=== PATIENT | male | born 1985 | race Two or more races ===

== ENCOUNTER 2021-10-11 08:54 | Inpatient (IN) | payer BC, SELFPAY ==
--- NOTE | ~2021-10-11 | XR_ITS ---
EXAMINATION: XR CHEST CLINICAL INFORMATION: Shortness of breath COMPARISON: None TECHNIQUE: Frontal view of the chest was obtained. FINDINGS: Prominent bilateral patchy areas of consolidation throughout both lungs. Cardiac mediastinal silhouette normal. Bone and soft tissues unremarkable. XR/XR chest 1V IMPRESSION: Prominent bilateral patchy areas of consolidation likely reflects prominent bilateral pneumonia
--- NOTE | ~2021-10-11 | US_ITS ---
EXAMINATION: US ABDOMEN LIMITED CLINICAL INFORMATION: Abnormal liver function test, COVID positive.. COMPARISON: None TECHNIQUE: Real-time imaging of the right upper quadrant abdominal viscera. FINDINGS: PANCREAS: Normal. LIVER: Normal. The liver is normal in size. The liver contour is normal. Parenchymal echogenicity is normal. No focal hepatic lesion. There is no intrahepatic biliary duct dilatation seen. GALLBLADDER: Normal. The gallbladder is physiologically distended without evidence of stones, sludge, polyps, wall thickening or pericholecystic fluid. COMMON BILE DUCT: Normal in caliber measuring 0.3 cm in diameter. RIGHT KIDNEY: The right kidney is abnormally increased in echogenicity without hydronephrosis. No renal calculi or focal parenchymal lesions. The kidney measures 11.3 cm in maximum dimension. FREE FLUID: None. US/US abdomen limited IMPRESSION: Normal liver size without biliary dilatation or gallstones The right kidney is echogenic which raises the possibility of medical renal disease or infection. No hydronephrosis.
[2021-10-11 09:04] VITALS: BP 113/72; PULSE 111; RESP 22; TEMP 37.1; O2SAT 90; BMI 25.8
--- NOTE | 2021-10-11 09:11 | PC.NURSE ---
2l nc applied. in [place]
--- NOTE | 2021-10-11 11:02 | ECG_ITS ---
Test Reason : sob Blood Pressure : / mmHG Vent. Rate : 096 BPM Atrial Rate : 096 BPM P-R Int : 128 ms QRS Dur : 078 ms QT Int : 332 ms P-R-T Axes : 061 034 000 degrees QTc Int : 419 ms Normal sinus rhythm Normal ECG No previous ECGs available Referred By: Estephania Manning Electronically Signed By:Lacho Waite
--- NOTE | 2021-10-11 11:04 | ED_ITS ---
HPI - URI/Sore Throat General Chief Complaint: Upper Respiratory Symptoms Stated Complaint: sob Time Seen by Provider: 10/11/21 10:56 Source: patient Mode of arrival: ambulatory Limitations: no limitations History of Present Illness HPI Narrative: 36 y/o male with no medical history who was diagnosed with COVID- 19 on 10/03 presents to the ER from home c/o worsening SOB, PELLETIER, body aches and headaches over the last week. He states he took a 2 day trip to [place] and in the airport when he got home on 10/03 he tested positive for COVID. He only had a mild headache at the time. Throughout the week he has gotten more symptoms and his breathing started to become very short with little exertion. He is fatigued and weak. He is unvaccinated. He denies any fevers at home. His appetite is poor because he lost his sense of taste. He has coughing fits and cannot catch his breath. He has central chest pain during these episodes and it takes him a while to recover. MD elicited complaint: cough and other (SOB, PELLETIER, body aches) Onset (ago): day(s) Consistency: constant Severity: moderate Able to tolerate fluids by mouth: Yes Exacerbating factors: exertion and speaking Relieving factors: rest Context: recent travel Associated symptoms: chills, myalgias, diaphoresis, headache, nasal congestion, cough, chest pain and shortness of breath Treatments prior to arrival: none Related Data Home Medications Medication Instructions Recorded Confirmed No Known Home Meds 10/11/21 10/11/21 Allergies Allergy/AdvReac Type Severity Reaction Status Date / Time No Known Allergies Allergy Verified 10/11/21 09:04 Review of Systems Review of Systems: Constitutional: No Fever, + Chills ENT/Mouth: No sore throat, No Rhinorrhea, No Swallowing Difficulty Eyes: No Eye Pain, No Swelling, No Redness Cardiovascular: + Chest Pain, + SOB, No Orthopnea, No Edema Respiratory: + Cough, No Sputum, No Wheezing, + dyspnea Gastrointestinal: No Nausea, No Vomiting, No Diarrhea, No abdominal Pain, No Hem atochezia, No Melena Genitourinary: No Dysuria, No Urinary Frequency, No Hematuria Musculoskeletal: + joint pain, + Myalgias Skin: No Skin Lesions, No rash Neuro: + Weakness, No Numbness, No Dizziness, + Headache Psych: No Anxiety/Panic, No Depression Heme/Lymph: No Bruising, No Lymphadenopathy Endocrine: No Polyuria, No Polydipsia PMFSH Social History Social History Alcohol intake: never Smoked in Last 30 Days: No Use of substances other than those prescribed or required for medical reasons: No Advance Directives: No Advance Directives Information Provided: No Physical Exam 2 Vital Signs: Vital Signs: Last Vital Signs Temp 98.7 F 10/11/21 09:04 Pulse 111 H 10/11/21 09:04 Resp 22 H 10/11/21 09:04 BP 113/72 10/11/21 09:04 Pulse Ox 88 L 10/11/21 11:24 BMI result Body Mass Index 25.8 Appearance: Alert. Oriented X3. Mild respiratory distress, diaphoretic, appears ill Eyes: Pupils equal, round and reactive to light. ENT: Pharynx normal. Moist mucus membranes, normal TM's bilaterally. Neck: Normal inspection. Neck supple. CVS: Tachycardic, regular rhythm. Pulses normal. Respiratory: Mild respiratory distress with increased RR, belly breathing after exertion. Breath sounds coarse and diminished at the bases, poor inspiratory effort. dry cough Abdomen: Soft and nontender. +BS x4 Skin: Skin warm and dry. Normal skin color. Normal skin turgor. No rashes. Extremities: No lower extremity edema. No calf tenderness. Neuro: Oriented X 3. No motor deficit. No sensory deficit. Ambulates with steady gait Course Course Course Narrative: 36 y/o otherwise healthy male who is unvaccinated for COVID presents with worsening COVID-19 symptoms x1 week. He is diaphoretic, tachycardic, with accessory muscle use after minimal exertion. SpO2 dropped to 88% and he was working to breathe. Placed on supplemental oxygen, 4L NC until he can recover. Anticipate admission. Will get COVID workup, CXR, EKG. Reevaluation(s) Reevaluation #1: Chest x-ray showing prominent bilateral patchy areas of consolidation most consistent with bilateral COVID pneumonia. IV Decadron ordered. He has some mild LFT elevation with no right upper quadrant pain, this most likely due to COVID-19. His CRP is 8.34 with a negative D-dimer. Respiratory status stable on 4 L nasal cannula. Will plan for admission. [facility] - URI/Sore Throat Medical Records Attestation: I reviewed the patient's medical records. Lab Data Attestation: I reviewed the patient's lab results. Result diagrams: 10/11/21 11:22 10/11/21 11:22 Labs: Lab Results 10/11/21 10/11/21 10/11/21 Range/Units 11:22 11:22 11:22 WBC 8.4 (4.8-10.8) X10*3/uL RBC 6.01 H (4.60-5.80) X10*6/uL Hgb 16.4 (14.0-18.0) g/dl Hct 48.6 (42.0-52.0) % MCV 80.9 (80.0-98.0) fL MCH 27.3 (27.0-33.0) pg MCHC 33.7 (31.0-36.0) g/dl RDW 16.6 H (11.0-16.0) % Plt Count 409 H (160-400) X10*3/uL MPV 10.0 (9.4-12.4) fL Immature Gran % (Auto) 1.2 H (0.0-0.4) % Neut % (Auto) 79.1 H (45-73) % Lymph % (Auto) 9.3 L (20-40) % [place] % (Auto) 10.3 (2-11) % Eos % (Auto) 0.0 (0-4) % Baso % (Auto) 0.1 (0-2) % Lymph # (Auto) 0.8 L (1.2-4.9) X10*3/uL [place] # (Auto) 0.9 (0.1-1.2) X10*3/uL Eos # (Auto) 0.0 (0.0-0.4) X10*3/uL Baso # (Auto) 0.0 (0.0-0.2) X10*3/uL Abs Immat Gran (auto) 0.10 H (0.00-0.03) X10*3/uL Absolute Neuts (auto) 6.7 (2.0-8.3) x10*3/uL Absolute Nucleated RBC 0.000 (0.0-0.012) X10*3/uL Nucleated RBC % (auto) 0.0 (0.0-0.2) /100WBC PT (9.9-13.0) SEC INR (0.9-1.1) APTT (24.1-38.0) SEC D-Dimer High Sensitivty NG/ML Sodium 135 (135-145) mmol/L Potassium 4.6 (3.3-5.1) mmol/L Chloride 97 (96-108) mmol/L Carbon Dioxide 27 (22-29) mmol/L Anion Gap 16 (12-20) BUN 9 (9-16) mg/dL Creatinine 1.00 (0.5-1.4) mg/dL Estim Creat Clear Calc 93.6 Estimated GFR > 60 Random Glucose 92 (60-115) mg/dL Lactic Acid 1.5 (0.5-2.0) mmol/L Calcium 8.7 (8.4-10.2) mg/dL Magnesium 2.3 (1.6-2.6) mg/dL Total Bilirubin 0.6 (0.0-1.0) mg/dL Direct Bilirubin 0.4 (0.0-0.5) mg/dL AST 135 H (5-37) U/L ALT 190 H (0-40) U/L Alkaline Phosphatase 59 (39-117) U/L Lactate Dehydrogenase 548 H (118-273) U/L C-Reactive Protein 8.34 H (< or = 0.50) mg/dL Total Protein 7.5 (6.5-8.0) g/dL Albumin 4.1 (3.5-5.0) g/dL Procalcitonin ng/mL COVID-19 ([facility]ARPAL) (Negative) COVID-19 Clin Com 10/11/21 10/11/21 10/11/21 Range/Units 11:22 11:22 11:22 WBC (4.8-10.8) X10*3/uL RBC (4.60-5.80) X10*6/uL Hgb (14.0-18.0) g/dl Hct (42.0-52.0) % MCV (80.0-98.0) fL MCH (27.0-33.0) pg MCHC (31.0-36.0) g/dl RDW (11.0-16.0) % Plt Count (160-400) X10*3/uL MPV (9.4-12.4) fL Immature Gran % (Auto) (0.0-0.4) % Neut % (Auto) (45-73) % Lymph % (Auto) (20-40) % [place] % (Auto) (2-11) % Eos % (Auto) (0-4) % Baso % (Auto) (0-2) % Lymph # (Auto) (1.2-4.9) X10*3/uL [place] # (Auto) (0.1-1.2) X10*3/uL Eos # (Auto) (0.0-0.4) X10*3/uL Baso # (Auto) (0.0-0.2) X10*3/uL Abs Immat Gran (auto) (0.00-0.03) X10*3/uL Absolute Neuts (auto) (2.0-8.3) x10*3/uL Absolute Nucleated RBC (0.0-0.012) X10*3/uL Nucleated RBC % (auto) (0.0-0.2) /100WBC PT 11.9 (9.9-13.0) SEC INR 1.0 (0.9-1.1) APTT 32.8 (24.1-38.0) SEC D-Dimer High Sensitivty < 150 NG/ML Sodium (135-145) mmol/L Potassium (3.3-5.1) mmol/L Chloride (96-108) mmol/L Carbon Dioxide (22-29) mmol/L Anion Gap (12-20) BUN (9-16) mg/dL Creatinine (0.5-1.4) mg/dL Estim Creat Clear Calc Estimated GFR Random Glucose (60-115) mg/dL Lactic Acid (0.5-2.0) mmol/L Calcium (8.4-10.2) mg/dL Magnesium (1.6-2.6) mg/dL Total Bilirubin (0.0-1.0) mg/dL Direct Bilirubin (0.0-0.5) mg/dL AST (5-37) U/L ALT (0-40) U/L Alkaline Phosphatase (39-117) U/L Lactate Dehydrogenase (118-273) U/L C-Reactive Protein (< or = 0.50) mg/dL Total Protein (6.5-8.0) g/dL Albumin (3.5-5.0) g/dL Procalcitonin 0.27 ng/mL COVID-19 ([facility]ARPAL) Positive A (Negative) COVID-19 Clin Com See Note ECG Data Attestation: I personally reviewed and interpreted this ECG as follows: ECG interpretation date: 10/11/21 ECG interpretation time: 11:52 Interpretation: Normal sinus rhythm, heart rate 96 beats per minute, normal LA interval, normal QTC, no ST segment elevations or depressions. Critical Care Time Critical Care Time Critical Care Time: Yes Total Critical Care Time: 35 Attestation: I have personally provided critical care time exclusive of time spent on separately billable procedures. Time includes review of lab data, radiology results, discussion with hospitalist, frequest bedside reassessments and monitoring for potential decompensation. Intervention performed as documented. Discharge Plan Discharge Clinical Impression: COVID-19, Acute respiratory failure with hypoxia Patient Disposition: Admitted As Inpatient
[2021-10-11 11:07] VITALS: O2SAT 91
[2021-10-11 11:24] VITALS: O2SAT 88
[2021-10-11] MEDS: 0.9 % Sodium Chloride 1,000 ML 999 ML IVCONT (11:29)
[2021-10-11] MEDS: dexAMETHasone sod phosphate 10 MG/ML VIAL IVPUSH (11:29)
[2021-10-11] MEDS: Acetaminophen 325 MG TABLET 975 MG PO (11:29)
[2021-10-11 11:30] LABS: MANUAL DIFF FLAG NO
[2021-10-11 11:31] LABS: Basophils Percent Auto 0.1 % (0-2); Hematocrit 48.6 % (42.0-52.0); Hemoglobin 16.4 g/dl (14.0-18.0); Imm Gran Pct Auto 1.2 % (0.0-0.4); Lymphocytes Absolute Auto 0.8 X10*3/uL (1.2-4.9); Lymphocytes Percent Auto 9.3 % (20-40); Mean Corpuscular HGB Conc 33.7 g/dl (31.0-36.0); Mean Corpuscular Hemoglobin 27.3 pg (27.0-33.0); Mean Corpuscular Volume 80.9 fL (80.0-98.0); Monocytes Absolute Auto 0.9 X10*3/uL (0.1-1.2); Monocytes Percent Auto 10.3 % (2-11); Neutrophils Absolute Auto 6.7 x10*3/uL (2.0-8.3); Neutrophils Percent Auto 79.1 % (45-73); Platelet Count 409 X10*3/uL (160-400); Red Blood Count 6.01 X10*6/uL (4.60-5.80); Red Cell Distribution Width 16.6 % (11.0-16.0); White Blood Count 8.4 X10*3/uL (4.8-10.8)
[2021-10-11 11:37] LABS: Prothrombin Time 11.9 SEC (9.9-13.0)
[2021-10-11 11:39] LABS: Partial Thromboplastin Time 32.8 SEC (24.1-38.0)
[2021-10-11 11:40] LABS: COVID-19 Test Positive (Negative); D Dimer High Sensitivity < 150 NG/ML
[2021-10-11 11:42] LABS: Lactic Acid 1.5 mmol/L (0.5-2.0)
[2021-10-11 11:50] LABS: Alanine Aminotransferase 190 U/L (0-40); Albumin Level 4.1 g/dL (3.5-5.0); Alkaline Phosphatase 59 U/L (39-117); Anion Gap 16 (12-20); Aspartate Amino Transferase 135 U/L (5-37); Bilirubin Direct 0.4 mg/dL (0.0-0.5); Bilirubin Total 0.6 mg/dL (0.0-1.0); Blood Urea Nitrogen 9 mg/dL (9-16); C Reactive Protein 8.34 mg/dL (< or = 0.50); Calcium 8.7 mg/dL (8.4-10.2); Carbon Dioxide 27 mmol/L (22-29); Chloride 97 mmol/L (96-108); Creatinine Clr Calc Pharmacy 93.6; Estimated Glomerular Filt Rate > 60; Glucose Random 92 mg/dL (60-115); Magnesium 2.3 mg/dL (1.6-2.6); Potassium 4.6 mmol/L (3.3-5.1); Sodium 135 mmol/L (135-145); Total Protein 7.5 g/dL (6.5-8.0)
[2021-10-11 11:59] LABS: Lactate Dehydrogenase 548 U/L (118-273)
--- NOTE | 2021-10-11 12:00 | PHA.MEDREC ---
Pharmacy Consult ? Medication Reconciliation Pharmacy has completed the medication reconciliation. Spoke with patient in ED.
[2021-10-11 12:05] LABS: Procalcitonin 0.27 ng/mL
[2021-10-11 12:52] LABS: Ferritin 666 ng/mL (20-250)
--- NOTE | 2021-10-11 13:33 | P.HPHOSP_ITS ---
History of Present Illness Date of Service: 10/11/21 Attending physician on admission: Loco Batista Chief Complaint: sob 36-year-old male with no significant past medical history had recent trip to [place] to visit his brother (who is vaccinated for COVID and has no symptoms currently). He says that he came back on and since then he is having headaches myalgia and loss of taste and smell, and from last 2-3 days he is also having progressive shortness of breath and fever. He says that a he still has on and off fever has some dry cough. he denies any sick contacts he says his brother lives alone and he also lives alone . unvaccinated. Denies any new complaint of chest pain or abdominal pain or fever or chills or nausea or vomiting genrally weak Denies any weakness or numbness. Review of Systems Review of Systems: As above. Yes all other systems are reviewed and are negative PMFSH Pertinent family history: Says his father has hypertension Social History Alcohol intake: never Smoked in Last 30 Days: No Use of substances other than those prescribed or required for medical reasons: No Advance Directives: No Advance Directives Information Provided: No service: No Current occupational status: employed Meds Allergies Allergy/AdvReac Type Severity Reaction Status Date / Time No Known Allergies Allergy Verified 10/11/21 09:04 Active Medications: Current Medications Dexamethasone Sodium Phosphate (Dexamethasone Sod Phosphate 4 Mg/Ml Vial) 6 mg IVPUSH DAILY [facility] Enoxaparin Sodium (Enoxaparin Sodium 40 Mg/0.4 Ml Syringe) 40 mg SUBCUT DAILY [facility] Pharmacy Consult (Consult Rx Perform Med Rec) 1 each MISCELLANE ONCE PRN PRN Reason: Consult order Pharmacy Consult (Consult Rx Perform Med Rec) 1 each MISCELLANE ONCE PRN PRN Reason: Consult order Sodium Chloride (0.9 % Sodium Chloride Flush 3 Ml Syringe) 3 ml IVFLUSH QSHIFT [facility] Home Medications Medication Instructions Recorded Confirmed Last Taken Type No Known Home Meds 10/11/21 10/11/21 Unknown History Physical Exam Vital Signs and Narrative: Vital Signs: Last Vital Signs Temp 98.7 F 10/11/21 09:04 Pulse 111 H 10/11/21 09:04 Resp 22 H 10/11/21 09:04 BP 113/72 10/11/21 09:04 Pulse Ox 88 L 10/11/21 11:24 BMI result Body Mass Index 25.8 Physical exam: Appearance: Alert.? Oriented X3.? not in distress.? Eyes: Pupils equal, round and reactive to light.? Sclera nonicteric.? ENT: Pharynx normal.? Moist mucous membranes. cvs: rrr, [id number] , no murmur res:fair air entry , slightly diminshed at bases , has few rhonchii abd: no rebound or guarding ,nt, bs present. ext pulses present , no cyanosis ,Gait well balanced well coordinated. neuro: axo3 , nonfocal. Results Labs CBC and Chem 7: 10/12/21 07:05 10/12/21 07:05 Labs: Laboratory Results - last 24 hr 10/11/21 10/11/21 10/11/21 11:22 11:22 11:22 MCV 80.9 MCH 27.3 MCHC 33.7 RDW 16.6 H Plt Count 409 H MPV 10.0 Immature Gran % (Auto) 1.2 H Neut % (Auto) 79.1 H Lymph % (Auto) 9.3 L [place] % (Auto) 10.3 Eos % (Auto) 0.0 Baso % (Auto) 0.1 Lymph # (Auto) 0.8 L [place] # (Auto) 0.9 Eos # (Auto) 0.0 Baso # (Auto) 0.0 Abs Immat Gran (auto) 0.10 H Absolute Neuts (auto) 6.7 Absolute Nucleated RBC 0.000 Nucleated RBC % (auto) 0.0 PT INR APTT D-Dimer High Sensitivty Anion Gap 16 Estim Creat Clear Calc 93.6 Estimated GFR > 60 Random Glucose 92 Lactic Acid 1.5 Calcium 8.7 Magnesium 2.3 Ferritin 666 H Total Bilirubin 0.6 Direct Bilirubin 0.4 AST 135 H ALT 190 H Alkaline Phosphatase 59 Lactate Dehydrogenase 548 H Total Creatine Kinase 314 H C-Reactive Protein 8.34 H Total Protein 7.5 Albumin 4.1 Procalcitonin COVID-19 ([facility]) COVID-19 Clin Com 10/11/21 10/11/21 10/11/21 11:22 11:22 11:22 MCV MCH MCHC RDW Plt Count MPV Immature Gran % (Auto) Neut % (Auto) Lymph % (Auto) [place] % (Auto) Eos % (Auto) Baso % (Auto) Lymph # (Auto) [place] # (Auto) Eos # (Auto) Baso # (Auto) Abs Immat Gran (auto) Absolute Neuts (auto) Absolute Nucleated RBC Nucleated RBC % (auto) PT 11.9 INR 1.0 APTT 32.8 D-Dimer High Sensitivty < 150 Anion Gap Estim Creat Clear Calc Estimated GFR Random Glucose Lactic Acid Calcium Magnesium Ferritin Total Bilirubin Direct Bilirubin AST ALT Alkaline Phosphatase Lactate Dehydrogenase Total Creatine Kinase C-Reactive Protein Total Protein Albumin Procalcitonin 0.27 COVID-19 ([facility]ARPAL) Positive A COVID-19 Clin Com See Note Imaging Radiologist's Impressions: Impressions Chest X-Ray 10/11/21 11:11 IMPRESSION: Prominent bilateral patchy areas of consolidation likely reflects prominent bilateral pneumonia Assessment and Plan (1) COVID-19: Status: Acute (2) Acute respiratory failure with hypoxia: Status: Acute 1. Acute hypoxemic respiratory failure secondary to COVID infection. viral sepsis, elevated LDH, lymphopenia, elevated C-reactive protein, procalc itonin low, Continue dexamethasone and oxygen support patient has symptoms starting on 24 as per patient. LFTs are elevated so currently may not able be on remdesivir. will add infectious disease evaluation 2. elevated liver function test: probably related to COVID will check hepatitis profile and abdominal ultrasound monitor LFTs. 3. DVT prophylaxis with subQ Lovenox above management discussed with the patient in detail length he understand and in agreement with the plan, time spent 70 minute patient full code. Quality Stroke Does the patient have a stroke diagnosis?: No VTE Prior VTE?: No VTE Risk Level:: Medical - moderate - high VTE Device Contraindication: N/A - Device Ordered VTE Drug Contraindication: N/A - Med Ordered
--- NOTE | 2021-10-11 14:27 | MHC.CM.PN ---
PATIENT LIVES ALONE AND IS FULLY INDEPENDENT HE IS NOT VACCINATED AGAINST COVID-19 NO DME OR VNA SERVICES HE ASSIGNS HIS MOTHER HCP DOCUMENT COMPLETED AND PLACED IN CHART, WELL UPLOADED INTO [employer].
[2021-10-11] MEDS: 0.9 % Sodium Chloride Flush 3 ML SYRINGE IVFLUSH (16:12)
[2021-10-11] MEDS: Enoxaparin Sodium 40 MG/0.4 ML SYRINGE SUBCUT (16:12)
[2021-10-11 17:30] VITALS: BP 116/68; PULSE 81; RESP 18; TEMP 36.6; O2SAT 94
[2021-10-12] VITALS (8 sets, daily range): BP systolic 90–125; BP diastolic 63–88; PULSE 69–90; RESP 15–34; TEMP 36.6–37.2; O2SAT 91–97
[2021-10-12] MEDS: 0.9 % Sodium Chloride Flush 3 ML SYRINGE IVFLUSH (00:20)
--- NOTE | 2021-10-12 02:02 | PC.NURSE ---
pt is sleeping.
[2021-10-12 07:18] LABS: Hematocrit 46.9 % (42.0-52.0); Hemoglobin 15.7 g/dl (14.0-18.0); Mean Corpuscular HGB Conc 33.5 g/dl (31.0-36.0); Mean Corpuscular Hemoglobin 26.7 pg (27.0-33.0); Mean Corpuscular Volume 79.8 fL (80.0-98.0); Mean Platelet Volume 9.7 fL (9.4-12.4); Platelet Count 412 X10*3/uL (160-400); Red Blood Count 5.88 X10*6/uL (4.60-5.80); Red Cell Distribution Width 15.6 % (11.0-16.0); White Blood Count 6.8 X10*3/uL (4.8-10.8)
[2021-10-12] MEDS: dexAMETHasone sod phosphate 4 MG/ML VIAL 6 MG IVPUSH (07:47)
--- NOTE | 2021-10-12 07:54 | PC.NURSE ---
Pt received; Pt AOX4 and c/o no pain at this time. NSR to sinus tachy noted with congestion and rales and prod cough. Pt remains on huddson n/c. Pt abd soft and non-tender. Pt now sitting up and tolerating breakfast.
[2021-10-12 08:05] LABS: Alanine Aminotransferase 145 U/L (0-40); Albumin Level 3.5 g/dL (3.5-5.0); Alkaline Phosphatase 51 U/L (39-117); Anion Gap 13 (12-20); Aspartate Amino Transferase 87 U/L (5-37); Bilirubin Direct 0.3 mg/dL (0.0-0.5); Bilirubin Total 0.6 mg/dL (0.0-1.0); Blood Urea Nitrogen 9 mg/dL (9-16); Calcium 8.2 mg/dL (8.4-10.2); Carbon Dioxide 26 mmol/L (22-29); Chloride 101 mmol/L (96-108); Creatinine Clr Calc Pharmacy 115.6; Estimated Glomerular Filt Rate > 60; Glucose Random 126 mg/dL (60-115); Potassium 4.7 mmol/L (3.3-5.1); Sodium 135 mmol/L (135-145); Total Protein 6.5 g/dL (6.5-8.0)
--- NOTE | 2021-10-12 11:29 | HO.PM.IMPN ---
Subjective Subjective Date of Service: 10/12/21 Interval History: Acute hypoxemic respiratory failure secondary to COVID Review of Systems Patient oxygen demand seems to be increasing overnight. Still feel tired and speaking in full sentences does not seem to be using accessory muscles. Denies any chest pain Has cough and phlegm Physical Exam Vital Signs: Vital Signs: Last Vital Signs Temp 97.9 F 10/12/21 06:28 Pulse 77 10/12/21 11:20 Resp 28 H 10/12/21 11:20 BP 112/88 10/12/21 11:20 Pulse Ox 94 10/12/21 11:20 BMI result Body Mass Index 25.8 Physical exam: ?Appearance: Alert.? Oriented X3.? not in distress.? Eyes: Pupils equal, round and reactive to light.? Sclera nonicteric.? ENT: Pharynx normal.? Moist mucous membranes. cvs: rrr, [id number] , no murmur res:fair? air entry , slightly diminshed at bases , has few rhonchii abd: no rebound or guarding ,nt, bs present. ext pulses present , no cyanosis . neuro: axo3 , nonfocal. Objective Data Active Medications Dexamethasone Sodium Phosphate (Dexamethasone Sod Phosphate 4 Mg/Ml Vial) 6 mg IVPUSH DAILY [facility] Last Admin: 10/12/21 07:47 Dose: 6 mg Documented by: SHELIA Enoxaparin Sodium (Enoxaparin Sodium 40 Mg/0.4 Ml Syringe) 40 mg SUBCUT Q24H [facility] Last Admin: 10/11/21 16:12 Dose: 40 mg Documented by: DENIA Pharmacy Consult (Consult Rx Perform Med Rec) 1 each MISCELLANE ONCE PRN PRN Reason: Consult order Pharmacy Consult (Consult Rx Perform Med Rec) 1 each MISCELLANE ONCE PRN PRN Reason: Consult order Sodium Chloride (0.9 % Sodium Chloride Flush 3 Ml Syringe) 3 ml IVFLUSH QSHIFT [facility] Last Admin: 10/12/21 07:15 Dose: Not Given Documented by: SHELIA Non-Admin Reason: Med Not Available Labs CBC & Chem 7: 10/12/21 07:05 10/12/21 07:05 Labs: Laboratory Results - last 24 hr 10/11/21 10/11/21 10/11/21 11:22 11:22 11:22 MCV 80.9 MCH 27.3 MCHC 33.7 RDW 16.6 H Plt Count 409 H MPV 10.0 Immature Gran % (Auto) 1.2 H Neut % (Auto) 79.1 H Lymph % (Auto) 9.3 L [place] % (Auto) 10.3 Eos % (Auto) 0.0 Baso % (Auto) 0.1 Lymph # (Auto) 0.8 L [place] # (Auto) 0.9 Eos # (Auto) 0.0 Baso # (Auto) 0.0 Abs Immat Gran (auto) 0.10 H Absolute Neuts (auto) 6.7 Absolute Nucleated RBC 0.000 Nucleated RBC % (auto) 0.0 PT INR APTT D-Dimer High Sensitivty Anion Gap 16 Estim Creat Clear Calc 93.6 Estimated GFR > 60 Random Glucose 92 Lactic Acid 1.5 Calcium 8.7 Magnesium 2.3 Ferritin 666 H Total Bilirubin 0.6 Direct Bilirubin 0.4 AST 135 H ALT 190 H Alkaline Phosphatase 59 Lactate Dehydrogenase 548 H Total Creatine Kinase 314 H C-Reactive Protein 8.34 H Total Protein 7.5 Albumin 4.1 Procalcitonin COVID-19 ([facility]) COVID-19 Clin Com 10/11/21 10/11/21 10/11/21 11:22 11:22 11:22 MCV MCH MCHC RDW Plt Count MPV Immature Gran % (Auto) Neut % (Auto) Lymph % (Auto) [place] % (Auto) Eos % (Auto) Baso % (Auto) Lymph # (Auto) [place] # (Auto) Eos # (Auto) Baso # (Auto) Abs Immat Gran (auto) Absolute Neuts (auto) Absolute Nucleated RBC Nucleated RBC % (auto) PT 11.9 INR 1.0 APTT 32.8 D-Dimer High Sensitivty < 150 Anion Gap Estim Creat Clear Calc Estimated GFR Random Glucose Lactic Acid Calcium Magnesium Ferritin Total Bilirubin Direct Bilirubin AST ALT Alkaline Phosphatase Lactate Dehydrogenase Total Creatine Kinase C-Reactive Protein Total Protein Albumin Procalcitonin 0.27 COVID-19 ([facility]) Positive A COVID-19 Clin Com See Note 10/12/21 10/12/21 07:05 07:05 MCV 79.8 L MCH 26.7 L MCHC 33.5 RDW 15.6 Plt Count 412 H MPV 9.7 Immature Gran % (Auto) Neut % (Auto) Lymph % (Auto) [place] % (Auto) Eos % (Auto) Baso % (Auto) Lymph # (Auto) [place] # (Auto) Eos # (Auto) Baso # (Auto) Abs Immat Gran (auto) Absolute Neuts (auto) Absolute Nucleated RBC 0.000 Nucleated RBC % (auto) 0.0 PT INR APTT D-Dimer High Sensitivty Anion Gap 13 Estim Creat Clear Calc 115.6 Estimated GFR > 60 Random Glucose 126 H D Lactic Acid Calcium 8.2 L Magnesium Ferritin Total Bilirubin 0.6 Direct Bilirubin 0.3 AST 87 H ALT 145 H Alkaline Phosphatase 51 Lactate Dehydrogenase Total Creatine Kinase C-Reactive Protein Total Protein 6.5 Albumin 3.5 Procalcitonin COVID-19 ([facility]) COVID-19 Clin Com Assessment and Plan (1) COVID-19: Status: Acute (2) Acute respiratory failure with hypoxia: Status: Acute Assessment and Plan: ?1.? Acute hypoxemic respiratory failure secondary to COVID infection. ?viral sepsis, elevated LDH, lymphopenia, elevated C-reactive protein, procalcitonin low, ? Continue dexamethasone and oxygen support now on 10liter ?patient has symptoms starting on 24th as per patient. ? LFTs are elevated so currently may not able be on remdesivir. ? infectious disease evaluation-lft's slowly improving 2. elevated liver function test:? probably related to COVID ?will check hepatitis profile -pending, abdominal ultrasound-seems fine ?monitor LFTs. 3.? DVT prophylaxis with subQ Lovenox Quality Stroke Does the patient have a stroke diagnosis?: No VTE Prior VTE?: No VTE Risk Level:: Medical - moderate - high VTE Device Contraindication: N/A - Device Ordered VTE Drug Contraindication: N/A - Med Ordered
[2021-10-12] MEDS: Enoxaparin Sodium 40 MG/0.4 ML SYRINGE SUBCUT (16:55)
[2021-10-12] MEDS: Melatonin 3 MG TABLET 6 MG PO (22:10)
[2021-10-13] VITALS (9 sets, daily range): BP systolic 100–131; BP diastolic 56–75; PULSE 73–90; RESP 17–34; TEMP 36.6–36.9; O2SAT 88–96
[2021-10-13] MEDS: 0.9 % Sodium Chloride Flush 3 ML SYRINGE IVFLUSH (01:18)
[2021-10-13 03:48] LABS: HBS Num1 12.87 mIU/mL (0-7.99); HBc Num1 0.06 S/CO (0.00-0.79); HBsAGNum1 0.19 S/CO (0.00-0.99); Hepatitis B Core Antibody Nonreactive (Nonreactive); Hepatitis B Surface Antigen Negative (Negative); ~Hepatitis B Surface Antibody REACTIVE (Nonreactive)
[2021-10-13 03:58] LABS: ~HepC Num1 0.11 S/CO (0.00-0.79); ~Hepatitis C Antibody Nonreactive (Nonreactive)
[2021-10-13] MEDS: Lidocaine 4 % Patch ADH..PATCH 1 PATCH TRANSDERMA (05:19)
[2021-10-13 07:34] LABS: Hematocrit 46.9 % (42.0-52.0); Hemoglobin 15.9 g/dl (14.0-18.0); Mean Corpuscular HGB Conc 33.9 g/dl (31.0-36.0); Mean Corpuscular Hemoglobin 26.6 pg (27.0-33.0); Mean Corpuscular Volume 78.6 fL (80.0-98.0); Mean Platelet Volume 9.9 fL (9.4-12.4); Platelet Count 491 X10*3/uL (160-400); Red Blood Count 5.97 X10*6/uL (4.60-5.80); Red Cell Distribution Width 16.1 % (11.0-16.0); White Blood Count 14.4 X10*3/uL (4.8-10.8)
[2021-10-13 07:51] LABS: Alanine Aminotransferase 139 U/L (0-40); Albumin Level 3.5 g/dL (3.5-5.0); Alkaline Phosphatase 51 U/L (39-117); Anion Gap 15 (12-20); Aspartate Amino Transferase 73 U/L (5-37); Bilirubin Direct 0.4 mg/dL (0.0-0.5); Bilirubin Total 0.6 mg/dL (0.0-1.0); Blood Urea Nitrogen 11 mg/dL (9-16); Calcium 8.4 mg/dL (8.4-10.2); Carbon Dioxide 25 mmol/L (22-29); Chloride 101 mmol/L (96-108); Creatinine Clr Calc Pharmacy 110.1; Estimated Glomerular Filt Rate > 60; Glucose Random 126 mg/dL (60-115); Potassium 4.8 mmol/L (3.3-5.1); Sodium 136 mmol/L (135-145); Total Protein 6.5 g/dL (6.5-8.0)
[2021-10-13] MEDS: dexAMETHasone sod phosphate 4 MG/ML VIAL 6 MG IVPUSH (09:16)
--- NOTE | 2021-10-13 09:25 | P.CDIC_ITS ---
CDI Concurrent Query Documentation Clarification: PHYSICIAN'S DOCUMENTATION REQUEST Date of Query: 10/13/2125 Patient Name: Ferny Mathew Admit Date: 10/11/21 Dear Doctor, A review of the medical record indicates additional documentation may be needed. Please review below and update the documentation accordingly. Risk Factors/Clinical Indicators/Treatments CXR: 10/11 - Prominent bilateral patchy area of consolidation likely reflects bilateral pneumonia. PN: 10/12 - Viral Sepsis, Covid-19, acute respiratory failure. Dexamethasone, oxygen, decradon * Viral Sepsis due to Covid-19 Pneumonia * Viral Sepsis due to Covid-19 * Other type * Unable to determine Use of terms such as suspected, likely, concern for, or probable (associated with a specific diagnosis that is being evaluated, monitored, or treated as if it exists) are acceptable and can be coded in the inpatient setting, when documented at the time of discharge. Thank you, Vanesa Randall [facility], CDIS Extension: [phone] Please use your independent medical judgment in providing your response. THIS QUERY IS PART OF THE PERMANENT MEDICAL RECORD Provider Response: Other Other Diagnosis: Viral sepsis due to COVID pneumonia
[2021-10-13] MEDS: guaiFEN/Codeine SF 200/20/10ML 10 ML LIQUID 5 ML PO ×2 (12:04→18:25)
--- NOTE | 2021-10-13 13:21 | P.PNIM_ITS ---
Subjective Subjective Date of Service: 10/13/21 Interval History: Acute hypoxemic respiratory failure secondary to COVID pneumonia, worse sepsis due to COVID pneumonia. Review of Systems Shortness of breath cyst is slowly improving has some cough and pain with coughing. Denies any fever chills or abdominal pain or nausea or vomiting Physical Exam Vital Signs: Vital Signs: Last Vital Signs Temp 98.1 F 10/13/21 09:18 Pulse 90 10/13/21 12:05 Resp 22 H 10/13/21 12:05 BP 110/70 10/13/21 12:05 Pulse Ox 92 10/13/21 12:07 BMI result Body Mass Index 25.8 ?Appearance: Alert.? Oriented X3.? not in distress.? Eyes: Pupils equal, round and reactive to light.? Sclera nonicteric.? ENT: Pharynx normal.? Moist mucous membranes. cvs: rrr, [id number] , no murmur res:air entry similar to yesterday abd: no rebound or guarding ,nt, bs present. ext pulses present , no cyanosis . neuro: axo3 , nonfocal. Objective Data Active Medications Dexamethasone Sodium Phosphate (Dexamethasone Sod Phosphate 4 Mg/Ml Vial) 6 mg IVPUSH DAILY [facility] Last Admin: 10/13/21 09:16 Dose: 6 mg Documented by: DAE Enoxaparin Sodium (Enoxaparin Sodium 40 Mg/0.4 Ml Syringe) 40 mg SUBCUT Q24H [facility] Last Admin: 10/12/21 16:55 Dose: 40 mg Documented by: SHELIA Guaifenesin/Codeine Phosphate (Guaifen/Codeine Sf 200/20/10ml 10 Ml Liquid) 5 ml PO Q6H PRN PRN Reason: Cough Last Admin: 10/13/21 12:04 Dose: 5 ml Documented by: DAE Lidocaine (Lidocaine 4 % Patch Adh..Patch) 1 patch TRANSDERMA DAILY [facility]; Protocol Last Admin: 10/13/21 06:55 Dose: Not Given Documented by: DAE Non-Admin Reason: Previously Administered Melatonin (Melatonin 3 Mg Tablet) 6 mg PO BEDTIME PRN PRN Reason: insomnioa Last Admin: 10/12/21 22:10 Dose: 6 mg Documented by: VERO Pharmacy Consult (Consult Rx Perform Med Rec) 1 each MISCELLANE ONCE PRN PRN Reason: Consult order Pharmacy Consult (Consult Rx Perform Med Rec) 1 each MISCELLANE ONCE PRN PRN Reason: Consult order Sodium Chloride (0.9 % Sodium Chloride Flush 3 Ml Syringe) 3 ml IVFLUSH QSHIFT [facility] Last Admin: 10/13/21 12:55 Dose: Not Given Documented by: ABDULLAHI Non-Admin Reason: Med Not Available Labs CBC & Chem 7: 10/13/21 07:24 10/13/21 07:24 Labs: Laboratory Results - last 24 hr 10/11/21 10/13/21 10/13/21 11:22 07:24 07:24 MCV 78.6 L MCH 26.6 L MCHC 33.9 RDW 16.1 H Plt Count 491 H MPV 9.9 Absolute Nucleated RBC 0.000 Nucleated RBC % (auto) 0.0 Anion Gap 15 Estim Creat Clear Calc 110.1 Estimated GFR > 60 Random Glucose 126 H Calcium 8.4 Total Bilirubin 0.6 Direct Bilirubin 0.4 AST 73 H ALT 139 H Alkaline Phosphatase 51 Total Protein 6.5 Albumin 3.5 Hep Bs Antigen Negative Hep Bs Antibody REACTIVE Hep B Core Total Ab Nonreactive Hepatitis C Ab (EIA) Nonreactive Assessment and Plan (1) COVID-19: Status: Acute (2) Acute respiratory failure with hypoxia: Status: Acute Assessment and Plan: 1.? Acute hypoxemic respiratory failure secondary to COVID infection. oxygen demand increasing ?viral sepsis sec to covid, elevated LDH, lymphopenia, elevated C-reactive protein, procalcitonin low, ? Continue dexamethasone and oxygen support now on 10liter ?patient has symptoms starting on 24 as per patient. ? LFTs are elevated so currently may not able be on remdesivir. ? infectious disease evaluation-lft's slowly improving may need pulm if further worsen clinically. 2. elevated liver function test:? probably related to COVID ?will check hepatitis profile -pending, abdominal ultrasound-seems fine ?monitor LFT-improving 3.? DVT prophylaxis with subQ Lovenox Quality Stroke Does the patient have a stroke diagnosis?: No VTE Prior VTE?: No VTE Risk Level:: Medical - moderate - high VTE Device Contraindication: N/A - Device Ordered VTE Drug Contraindication: N/A - Med Ordered
[2021-10-13] MEDS: Enoxaparin Sodium 40 MG/0.4 ML SYRINGE SUBCUT (17:18)
--- NOTE | 2021-10-13 17:27 | P.CONPL_ITS ---
History of Present Illness History of Present Illness Consult date: 10/13/21 Chief complaint: ACUTE HYPOXEMIC RESPIRATORY FAILURE SECONDARY TO C Narrative: ?This is an in patient pulmonary consultation. The p[ihsanient is a 36-year-old male? with no significant past medical history had recent trip to [place].? He says that he came back on and since then he is having headaches myalgia and loss of taste and smell,? and from last 2-3 days he is also having progressive shortness of breath and fever. He says that a he still has on and off fever has some dry cough. In the ED he was found to be hypoxic requiring 11L Nasal cannula. Review of Systems Constitutional: Constitutional: Denies night sweats ENT: Denies change in voice, Denies lip swelling, Denies mouth pain, Reports nasal congestion, Reports nasal discharge and Denies tongue swelling Cardiovascular: Cardiovascular: Denies chest pain and Reports dyspnea Respiratory: Respiratory: Reports cough and Reports dyspnea Gastrointestinal: Gastrointestinal: Denies abdominal pain Musculoskeletal: Musculoskeletal: Denies no additional musculoskeletal complaints Neurologic: Denies Neuro-related abnormal movements Psychiatric: Psychiatric: Denies no additional psychiatric complaints Hematologic/Lymphatic: Hematologic/Lymphatic: Denies easy bleeding and Denies lymphadenopathy Allergic/Immunologic: Allergic/Immunologic: Denies lip swelling and Denies tongue swelling PMF Social History Social History Alcohol intake: never Smoked in Last 30 Days: No Use of substances other than those prescribed or required for medical reasons: No Advance Directives: No Advance Directives Information Provided: No service: No Current occupational status: employed Meds Allergies Allergy/AdvReac Type Severity Reaction Status Date / Time No Known Allergies Allergy Verified 10/11/21 09:04 Active Medications: Current Medications Dexamethasone Sodium Phosphate (Dexamethasone Sod Phosphate 4 Mg/Ml Vial) 6 mg IVPUSH DAILY [facility] Last Admin: 10/13/21 09:16 Dose: 6 mg Documented by: Enoxaparin Sodium (Enoxaparin Sodium 40 Mg/0.4 Ml Syringe) 40 mg SUBCUT Q24H [facility] Last Admin: 10/13/21 17:18 Dose: 40 mg Documented by: Guaifenesin/Codeine Phosphate (Guaifen/Codeine Sf 200/20/10ml 10 Ml Liquid) 5 ml PO Q6H PRN PRN Reason: Cough Last Admin: 10/13/21 12:04 Dose: 5 ml Documented by: Lidocaine (Lidocaine 4 % Patch Adh..Patch) 1 patch TRANSDERMA DAILY [facility]; Protocol Last Admin: 10/13/21 06:55 Dose: Not Given Documented by: Melatonin (Melatonin 3 Mg Tablet) 6 mg PO BEDTIME PRN PRN Reason: insomnioa Last Admin: 10/12/21 22:10 Dose: 6 mg Documented by: Pharmacy Consult (Consult Rx Perform Med Rec) 1 each MISCELLANE ONCE PRN PRN Reason: Consult order Pharmacy Consult (Consult Rx Perform Med Rec) 1 each MISCELLANE ONCE PRN PRN Reason: Consult order Sodium Chloride (0.9 % Sodium Chloride Flush 3 Ml Syringe) 3 ml IVFLUSH [facility] Last Admin: 10/13/21 12:55 Dose: Not Given Documented by: Home Medications Medication Instructions Recorded Confirmed Last Taken Type No Known Home Meds 10/11/21 10/11/21 Unknown History Physical Exam Vital Signs: Vital Signs: Last Vital Signs Temp 98.1 F 10/13/21 09:18 Pulse 83 10/13/21 17:19 Resp 17 10/13/21 17:19 BP 112/72 10/13/21 17:19 Pulse Ox 93 10/13/21 17:19 BMI result Body Mass Index 25.8 Const: General: alert Neck: Neck: Yes normal visual inspection, Yes full ROM and Yes no lymphadenopathy Chest: Chest palpation & inspection: normal inspection of the chest Resp: Auscultation: rales and diminished lung sounds Cardio: Rate: regular rate Rhythm: regular rhythm Heart sounds: S1 normal heart sound present and S2 normal heart sound present GI: Palpation (GI): Soft to palpation and nontender Auscultation: normal bowel sounds Skin: General skin exam: rashes and/or lesions noted Results Laboratory Findings CBC and BMP: 10/13/21 07:24 10/13/21 07:24 ABG, PT/INR, D-dimer: PT/INR, D-dimer PT 11.9 SEC (9.9-13.0) 10/11/21 11:22 INR 1.0 (0.9-1.1) 10/11/21 11:22 Abnormal lab findings: Abnormal Labs 10/11/21 10/11/21 10/11/21 11:22 11:22 11:22 WBC RBC 6.01 H MCV MCH RDW 16.6 H Plt Count 409 H Immature Gran % (Auto) 1.2 H Neut % (Auto) 79.1 H Lymph % (Auto) 9.3 L Lymph # (Auto) 0.8 L Abs Immat Gran (auto) 0.10 H Random Glucose Calcium Ferritin 666 H AST 135 H ALT 190 H Lactate Dehydrogenase 548 H Total Creatine Kinase 314 H C-Reactive Protein 8.34 H COVID-19 (HARPAL) Positive A 10/12/21 10/12/21 10/13/21 07:05 07:05 07:24 WBC RBC 5.88 H MCV 79.8 L MCH 26.7 L RDW Plt Count 412 H Immature Gran % (Auto) Neut % (Auto) Lymph % (Auto) Lymph # (Auto) Abs Immat Gran (auto) Random Glucose 126 H D 126 H Calcium 8.2 L Ferritin AST 87 H 73 H ALT 145 H 139 H Lactate Dehydrogenase Total Creatine Kinase C-Reactive Protein COVID-19 (HARPAL) 10/13/21 07:24 WBC 14.4 H RBC 5.97 H MCV 78.6 L MCH 26.6 L RDW 16.1 H Plt Count 491 H Immature Gran % (Auto) Neut % (Auto) Lymph % (Auto) Lymph # (Auto) Abs Immat Gran (auto) Random Glucose Calcium Ferritin AST ALT Lactate Dehydrogenase Total Creatine Kinase C-Reactive Protein COVID-19 (HARPAL) Assessment and Plan (1) Acute respiratory failure with hypoxia: Status: Acute (2) COVID-19: Status: Acute Continue oxygen supplementation to maintain a pulse ox above 90% Continue Decadron Awake Proning consider Baricitinib if he has worsening hypoxia Robitussin AC Procedures Date of Service Date of Service: 10/13/21
--- NOTE | 2021-10-13 21:16 | PC.NURSE ---
Report called to [facility] RN, pt to floor via [employer] [facility]. Sent in stable condition w/ all belongings, attached to portable monitor, 7L O2 via [employer] [place].
--- NOTE | 2021-10-13 22:30 | P.CNID_ITS ---
History of Present Illness Data of Consult Service Date: 10/13/21 Requesting physician: Loco Batista Primary Care Provider: Hetal Little MD HPI Reason for consult: COVID He has cough and shortness of breath for 11 days He has COVID He is unvaccinated He went to [place] and caught COVID Review of Systems Verdana 4l Review of Systems: Yes all other systems are reviewed and Verdana 4d are negative [facility] Social History Social History Household Members: None Housing: Apartment Do you presently have visiting nurse or other home services: No Alcohol intake: never Patient Tobacco Use Status: Never used Tobacco e-Cigarette/Vaping Use: Never Used service: No Current occupational status: employed Meds Allergies Allergy/AdvReac Type Severity Reaction Status Date / Time No Known Allergies Allergy Verified 11/06/21 13:05 Active Medications: Current Medications Dexamethasone Sodium Phosphate (Dexamethasone Sod Phosphate 4 Mg/Ml Vial) 6 mg IVPUSH DAILY [facility] Last Admin: 10/13/21 09:16 Dose: 6 mg Documented by: Enoxaparin Sodium (Enoxaparin Sodium 40 Mg/0.4 Ml Syringe) 40 mg SUBCUT Q24H [facility] Last Admin: 10/13/21 17:18 Dose: 40 mg Documented by: Guaifenesin/Codeine Phosphate (Guaifen/Codeine Sf 200/20/10ml 10 Ml Liquid) 5 ml PO Q6H PRN PRN Reason: Cough Last Admin: 10/13/21 18:25 Dose: 5 ml Documented by: Lidocaine (Lidocaine 4 % Patch Adh..Patch) 1 patch TRANSDERMA DAILY [facility]; Protocol Last Admin: 10/13/21 06:55 Dose: Not Given Documented by: Melatonin (Melatonin 3 Mg Tablet) 6 mg PO BEDTIME PRN PRN Reason: insomnioa Last Admin: 10/12/21 22:10 Dose: 6 mg Documented by: Pharmacy Consult (Consult Rx Perform Med Rec) 1 each MISCELLANE ONCE PRN PRN Reason: Consult order Pharmacy Consult (Consult Rx Perform Med Rec) 1 each MISCELLANE ONCE PRN PRN Reason: Consult order Sodium Chloride (0.9 % Sodium Chloride Flush 3 Ml Syringe) 3 ml IVFLUSH QSHIFT [facility] Last Admin: 10/13/21 12:55 Dose: Not Given Documented by: Physical Exam Verdana 4l Vital Signs: Verdana 4d Verdana 4d Vital Signs: Verdana 4d Verdana 4Bd Last Vital Signs Verdana 4d [employer] Plater New 4d [employer] Plater New 4d Temp 98 F 10/13/21 20:00 [employer] Plater New 4d Pulse 77 10/13/21 20:00 [employer] Plater New 4d Resp 20 10/13/21 20:00 BP 119/70 10/13/21 20:00 Pulse Ox 90 L 10/13/21 20:00 BMI result Body Mass Index 25.8 Const: General: cooperative Eyes: General: appearance normal, both eyes and all related structures Resp: Effort & Inspection: normal respiratory effort Cardio: Rate: regular rate Rhythm: regular rhythm GI: Palpation (GI): nontender Extrem: General: Yes normal to inspection Results Labs CBC & Chem 7: 10/14/21 06:15 10/14/21 06:15 Labs: Short CBC 10/13/21 Range/Units 07:24 WBC 14.4 H (4.8-10.8) X10*3/uL Hgb 15.9 (14.0-18.0) g/dl Hct 46.9 (42.0-52.0) % Plt Count 491 H (160-400) X10*3/uL BMP 10/13/21 07:24 Sodium 136 Potassium 4.8 Chloride 101 Carbon Dioxide 25 BUN 11 Creatinine 0.85 Calcium 8.4 Liver Function 10/13/21 Range/Units 07:24 Total Bilirubin 0.6 (0.0-1.0) mg/dL Direct Bilirubin 0.4 (0.0-0.5) mg/dL AST 73 H (5-37) U/L ALT 139 H (0-40) U/L Alkaline Phosphatase 51 (39-117) U/L Albumin 3.5 (3.5-5.0) g/dL Assessment and Plan (1) COVID-19: Status: Acute He has increasing oxygen demands Remdesivir doesnt work so far out Dexamethasone is helpful (2) Acute respiratory failure with hypoxia: Status: Resolved Plan Baricitinib as long as oxygen requirement remains high Dexamethasone
[2021-10-14 03:33] VITALS: BP 116/58; PULSE 73; RESP 18; TEMP 37; O2SAT 97
[2021-10-14] MEDS: 0.9 % Sodium Chloride Flush 3 ML SYRINGE IVFLUSH ×3 (04:17→15:39)
[2021-10-14 06:40] LABS: Hematocrit 44.6 % (42.0-52.0); Hemoglobin 15.3 g/dl (14.0-18.0); Mean Corpuscular HGB Conc 34.3 g/dl (31.0-36.0); Mean Corpuscular Hemoglobin 26.9 pg (27.0-33.0); Mean Corpuscular Volume 78.5 fL (80.0-98.0); Mean Platelet Volume 9.8 fL (9.4-12.4); Platelet Count 545 X10*3/uL (160-400); Red Blood Count 5.68 X10*6/uL (4.60-5.80); Red Cell Distribution Width 15.3 % (11.0-16.0); White Blood Count 14.6 X10*3/uL (4.8-10.8)
[2021-10-14 06:56] LABS: Alanine Aminotransferase 104 U/L (0-40); Albumin Level 3.3 g/dL (3.5-5.0); Alkaline Phosphatase 49 U/L (39-117); Anion Gap 13 (12-20); Aspartate Amino Transferase 40 U/L (5-37); Bilirubin Direct 0.4 mg/dL (0.0-0.5); Bilirubin Total 0.6 mg/dL (0.0-1.0); Blood Urea Nitrogen 11 mg/dL (9-16); Calcium 8.4 mg/dL (8.4-10.2); Carbon Dioxide 25 mmol/L (22-29); Chloride 102 mmol/L (96-108); Creatinine Clr Calc Pharmacy 124.8; Estimated Glomerular Filt Rate > 60; Glucose Random 113 mg/dL (60-115); Potassium 5.1 mmol/L (3.3-5.1); Sodium 135 mmol/L (135-145); Total Protein 6.2 g/dL (6.5-8.0)
[2021-10-14 07:39] VITALS: BP 107/60; PULSE 76; RESP 20; TEMP 37.1; O2SAT 92
--- NOTE | 2021-10-14 10:02 | P.PNPL_ITS ---
Subjective Subjective Date of Service: 10/14/21 Principal diagnosis: covid - 19 Pneumonia Interval history: This 36 years old gentleman is being seen for pulmonary fo llow-up, with diagnosis of acute COVID-19 pneumonia and ARDS. He is on O2 8 L/minute by nasal cannula. He claims to be feeling a little better. Cough is minimal, denies any chest pain or wheezing. Objective Data Labs CBC & Chem 7: 10/14/21 06:15 10/14/21 06:15 Labs: Laboratory Results - last 24 hr 10/14/21 10/14/21 06:15 06:15 WBC 14.6 H RBC 5.68 Hgb 15.3 Hct 44.6 MCV 78.5 L MCH 26.9 L MCHC 34.3 RDW 15.3 Plt Count 545 H MPV 9.8 Absolute Nucleated RBC 0.000 Nucleated RBC % (auto) 0.0 Sodium 135 Potassium 5.1 Chloride 102 Carbon Dioxide 25 Anion Gap 13 BUN 11 Creatinine 0.75 Estim Creat Clear Calc 124.8 Estimated GFR > 60 Random Glucose 113 Calcium 8.4 Total Bilirubin 0.6 Direct Bilirubin 0.4 AST 40 H D ALT 104 H Alkaline Phosphatase 49 Total Protein 6.2 L Albumin 3.3 L leukocytosis is probably related to steroids. Imaging CT scan - chest: My impression: Bilateral patchy infiltrates consistent with COVID-19 pneumonia Review of Systems Review of Systems Yes all other systems are reviewed and are negative Constitutional: Reports no additional constitutional complaints Eyes: Reports no additional eye complaints Reports system reviewed and no additional complaints, except as documented Cardiovascular: Denies chest pain, Denies irregular heart rhythm and Denies leg edema Respiratory: Reports as per HPI Gastrointestinal: Reports no additional gastrointestinal complaints Genitourinary: Reports no additional male genitourinary complaints Musculoskeletal: Reports no additional musculoskeletal complaints Skin/Breast: Reports system reviewed and no additional complaints, except as docu Physical Exam Vital Signs: Vital Signs: Last Vital Signs Temp 98.7 F 10/14/21 07:39 Pulse 76 10/14/21 07:39 Resp 20 10/14/21 07:39 BP 107/60 10/14/21 07:39 Pulse Ox 92 10/14/21 07:39 BMI result Body Mass Index 25.8 Const: General: healthy appearing, comfortable (Slightly short of breath during conversation), no acute distress, alert and awake Orientation/consciousness: patient oriented x3 HENMT: Head: Yes normal to inspection General nose exam: No nasal polyps present and No nasal discharge present Face and sinus: Yes sinuses nontender Mouth: oropharynx normal Throat: Yes posterior oropharynx normal Eyes: General: appearance normal, both eyes and all related structures Neck: Neck: Yes normal visual inspection, Yes no lymphadenopathy, Yes trachea midline and Yes no JVD Thyroid: Thyroid normal Chest: Chest palpation & inspection: normal inspection of the chest, normal palpation of entire chest wall and no tenderness Resp: Other: Percussion note resonant, has equal breath sounds on both sides, no wheezes. A few inspiratory crackles over the basilar areas. Cardio: Palpation: normal PMI Rate: regular rate Rhythm: regular rhythm Heart sounds: no gallops and no murmurs Peripheral pulses: Peripheral puls es 2+ throughout GI: Palpation (GI): Soft to palpation, nontender, No hepatosplenomegaly present and no masses Auscultation: normal bowel sounds Back/Spine/Pelvis: Thoracic/Lumbar Spine: thoracic and lumbar spine normal to inspection Skin: General skin exam: no rashes or lesions noted Neuro: General: patient oriented x3 and no focal motor deficits Cranial nerves: Yes CN's II-XII intact bilaterally Extrem: General: Yes normal to inspection, Yes no clubbing, cyanosis or edema and Yes no calf tenderness Psych: Appearance: grossly normal and well kempt Speech and movement: Normal speech and movement present Procedures Date of Service Date of Service: 10/14/21 Assessment and Plan Assessment and plan (1) COVID-19: Status: Acute Assessment and Plan: Patient has acute COVID pneumonia, currently stable. TX continue dexamethasone 6 mg IV daily to complete course of 10 days. Thromboembolic prophylaxis (2) Acute respiratory failure with hypoxia: Status: Acute Assessment and Plan: He is stable on nasal cannula and 8 L/minute. Advised to do deep breathing exercises every few hours. Time Spent With Patient Time: Total time spent is greater than 50% in coordination of care (as documented) at patient's floor/unit and/or counseling patient: Time with patient: 15 - 24 minutes Progress Note: Quality Stroke Does the patient have a stroke diagnosis?: No
[2021-10-14] MEDS: dexAMETHasone sod phosphate 4 MG/ML VIAL 6 MG IVPUSH (10:10)
[2021-10-14] MEDS: Lidocaine 4 % Patch ADH..PATCH 1 PATCH TRANSDERMA (10:12)
[2021-10-14 11:20] VITALS: BP 116/69; PULSE 87; RESP 20; TEMP 36.8; O2SAT 92
--- NOTE | 2021-10-14 12:38 | HO.PM.IMPN ---
Subjective Subjective Date of Service: 10/14/21 Interval History: seen in f/u for hypoxia d/t covid, still hypoxic on 8 liters by NC but feels better Review of Systems sob, no feve Physical Exam Vital Signs: Vital Signs: Last Vital Signs Temp 98.3 F 10/14/21 11:20 Pulse 87 10/14/21 11:20 Resp 20 10/14/21 11:20 BP 116/69 10/14/21 11:20 Pulse Ox 92 10/14/21 11:20 BMI result Body Mass Index 25.8 Const: Other: General: AO X 3, no acute distress Resp: CTA bilateral CVS: S1,S2,RRR GI: +BS, NT, no distention Skin: No rash Neuro: motor grossly intact Psych: appropriate affect Objective Data Active Medications Dexamethasone Sodium Phosphate (Dexamethasone Sod Phosphate 4 Mg/Ml Vial) 6 mg IVPUSH DAILY [facility] Last Admin: 10/14/21 10:10 Dose: 6 mg Documented by: BENNETT Enoxaparin Sodium (Enoxaparin Sodium 40 Mg/0.4 Ml Syringe) 40 mg SUBCUT Q24H [facility] Last Admin: 10/13/21 17:18 Dose: 40 mg Documented by: DAE Guaifenesin/Codeine Phosphate (Guaifen/Codeine Sf 200/20/10ml 10 Ml Liquid) 5 ml PO Q6H PRN PRN Reason: Cough Last Admin: 10/13/21 18:25 Dose: 5 ml Documented by: DAE Lidocaine (Lidocaine 4 % Patch Adh..Patch) 1 patch TRANSDERMA DAILY [facility]; Protocol Last Admin: 10/14/21 10:12 Dose: 1 patch Documented by: BENNETT Melatonin (Melatonin 3 Mg Tablet) 6 mg PO BEDTIME PRN PRN Reason: insomnioa Last Admin: 10/12/21 22:10 Dose: 6 mg Documented by: VERO Pharmacy Consult (Consult Rx Perform Med Rec) 1 each MISCELLANE ONCE PRN PRN Reason: Consult order Pharmacy Consult (Consult Rx Perform Med Rec) 1 each MISCELLANE ONCE PRN PRN Reason: Consult order Sodium Chloride (0.9 % Sodium Chloride Flush 3 Ml Syringe) 3 ml IVFLUSH QSHIFT [facility] Last Admin: 10/14/21 10:10 Dose: 3 ml Documented by: BENNETT Labs CBC & Chem 7: 10/14/21 06:15 10/14/21 06:15 Labs: Laboratory Results - last 24 hr 10/14/21 10/14/21 06:15 06:15 MCV 78.5 L MCH 26.9 L MCHC 34.3 RDW 15.3 Plt Count 545 H MPV 9.8 Absolute Nucleated RBC 0.000 Nucleated RBC % (auto) 0.0 Anion Gap 13 Estim Creat Clear Calc 124.8 Estimated GFR > 60 Random Glucose 113 Calcium 8.4 Total Bilirubin 0.6 Direct Bilirubin 0.4 AST 40 H D ALT 104 H Alkaline Phosphatase 49 Total Protein 6.2 L Albumin 3.3 L Assessment and Plan (1) COVID-19: Status: Acute (2) Acute respiratory failure with hypoxia: Status: Acute Assessment and Plan: 1.? Acute hypoxemic respiratory failure secondary to COVID infection. remains hypoxic on 8 liters by NC continue Dexamethasone Avoid Remdesevir d/t high LFTs Baricitinib if gets on high flow Pulmonary input noted--not different from what we are doing 2. Elevated LFTs d/t covid 3.? DVT prophylaxis with subQ Lovenox Quality Stroke Does the patient have a stroke diagnosis?: No VTE Prior VTE?: No VTE Risk Level:: Medical - moderate - high VTE Device Contraindication: N/A - Device Ordered VTE Drug Contraindication: N/A - Med Ordered
[2021-10-14] MEDS: Enoxaparin Sodium 40 MG/0.4 ML SYRINGE SUBCUT (15:39)
[2021-10-14 16:00] VITALS: BP 121/64; PULSE 80; RESP 20; TEMP 37.1; O2SAT 90
[2021-10-14 19:27] VITALS: BP 100/56; PULSE 83; RESP 24; TEMP 37.2; O2SAT 89
[2021-10-14 22:43] VITALS: BP 114/56; PULSE 67; RESP 22; TEMP 36.7; O2SAT 90
[2021-10-15] VITALS (7 sets, daily range): BP systolic 111–120; BP diastolic 54–76; PULSE 68–87; RESP 18–20; TEMP 36.4–37.1; O2SAT 85–97
[2021-10-15] MEDS: 0.9 % Sodium Chloride Flush 3 ML SYRINGE IVFLUSH ×4 (00:14→22:16)
[2021-10-15 04:21] LABS: Hepatitis A Antibody IgM 0.19 Index (0-0.79); ~Hepatitis A Antibody IgM Nonreactive (Nonreactive)
[2021-10-15] MEDS: dexAMETHasone sod phosphate 4 MG/ML VIAL 6 MG IVPUSH (08:39)
[2021-10-15] MEDS: Lidocaine 4 % Patch ADH..PATCH 1 PATCH TRANSDERMA (08:40)
--- NOTE | 2021-10-15 12:12 | HO.PM.IMPN ---
Subjective Subjective Date of Service: 10/15/21 Interval History: seen in f/u for hypoxia d/t covid, still hypoxic and O2 requirement has gone up presently on 13 liter and sating 96--He doen't feel worse Review of Systems sob, no fever Physical Exam Vital Signs: Vital Signs: Last Vital Signs Temp 97.6 F 10/15/21 11:14 Pulse 68 10/15/21 11:14 Resp 19 10/15/21 11:14 BP 118/71 10/15/21 11:14 Pulse Ox 96 10/15/21 11:14 BMI result Body Mass Index 25.8 Const: Other: General: AO X 3, no acute distress Resp: normal respiratory effort CVS: S1,S2,RRR GI: +BS, NT, no distention Skin: No rash Neuro: motor grossly intact Psych: appropriate affect Objective Data Active Medications Dexamethasone Sodium Phosphate (Dexamethasone Sod Phosphate 4 Mg/Ml Vial) 6 mg IVPUSH DAILY [facility] Last Admin: 10/15/21 08:39 Dose: 6 mg Documented by: JOE Enoxaparin Sodium (Enoxaparin Sodium 40 Mg/0.4 Ml Syringe) 40 mg SUBCUT Q24H [facility] Last Admin: 10/14/21 15:39 Dose: 40 mg Documented by: JOAQUINA Guaifenesin/Codeine Phosphate (Guaifen/Codeine Sf 200/20/10ml 10 Ml Liquid) 5 ml PO Q6H PRN PRN Reason: Cough Last Admin: 10/13/21 18:25 Dose: 5 ml Documented by: DAE Lidocaine (Lidocaine 4 % Patch Adh..Patch) 1 patch TRANSDERMA DAILY [facility]; Protocol Last Admin: 10/15/21 08:40 Dose: 1 patch Documented by: JOE Melatonin (Melatonin 3 Mg Tablet) 6 mg PO BEDTIME PRN PRN Reason: insomnioa Last Admin: 10/12/21 22:10 Dose: 6 mg Documented by: VERO Pharmacy Consult (Consult Rx Perform Med Rec) 1 each MISCELLANE ONCE PRN PRN Reason: Consult order Pharmacy Consult (Consult Rx Perform Med Rec) 1 each MISCELLANE ONCE PRN PRN Reason: Consult order Sodium Chloride (0.9 % Sodium Chloride Flush 3 Ml Syringe) 3 ml IVFLUSH QSHIFT [facility] Last Admin: 10/15/21 08:40 Dose: 3 ml Documented by: JOE Labs CBC & Chem 7: 10/14/21 06:15 10/14/21 06:15 Labs: Laboratory Results - last 24 hr 10/11/21 11:22 Hepatitis A IgM Ab Nonreactive Assessment and Plan (1) COVID-19: Status: Acute (2) Acute respiratory failure with hypoxia: Status: Acute Assessment and Plan: 1.? Acute hypoxemic respiratory failure secondary to COVID infection. remains hypoxic on 13 liters by NC continue Dexamethasone Avoid Remdesevir d/t high LFTs Baricitinib if gets on high flow Pulmonary input noted--not different from what we are doing 2. Elevated LFTs d/t covid 3.? DVT prophylaxis with subQ Lovenox Quality Stroke Does the patient have a stroke diagnosis?: No VTE Prior VTE?: No VTE Risk Level:: Medical - moderate - high VTE Device Contraindication: N/A - Device Ordered VTE Drug Contraindication: N/A - Med Ordered
--- NOTE | 2021-10-15 14:49 | MHC.CM.PN ---
Male 36 + covid. He has an increased need for supplemental oxygen. He isnow on HF. DP home no services. Pt will arrange for transport.
[2021-10-15] MEDS: Enoxaparin Sodium 40 MG/0.4 ML SYRINGE SUBCUT (16:24)
[2021-10-15] MEDS: guaiFEN/Codeine SF 200/20/10ML 10 ML LIQUID 5 ML PO (22:15)
[2021-10-16] VITALS: BP 101/55; PULSE 68; RESP 19; TEMP 36.8; O2SAT 94
[2021-10-16 04:00] VITALS: BP 118/68; PULSE 67; RESP 19; TEMP 36.8; O2SAT 94
[2021-10-16 07:50] VITALS: BP 115/66; PULSE 67; RESP 19; TEMP 36.8; O2SAT 95
--- NOTE | 2021-10-16 09:22 | P.PNPL_ITS ---
Subjective Subjective Date of Service: 10/16/21 Principal diagnosis: covid - 19 Pneumonia Interval history: THIS 36 YEARS OLD GENTLEMAN BEING TREATED FOR ACUTE COVID PNEUMONIA, AND ARDS. IS GRADUALLY IMPROVING. HE DENIES ANY RESPIRATORY DISTRESS, OXYGENATING OKAY WITH NASAL CANNULA, AT 12- 13 L/MINUTE. HE HAS MILD TO MODERATE DEGREE OF COUGH , NO CHEST PAIN NO WHEEZING. REMAINS AFEBRILE. Objective Data Labs CBC & Chem 7: 10/14/21 06:15 10/14/21 06:15 Labs: LEUKOCYTOSIS PROBABLY SECONDARY TO IV STEROIDS. Review of Systems Review of Systems Yes all other systems are reviewed and are negative Physical Exam Vital Signs: Vital Signs: Last Vital Signs Temp 98.3 F 10/16/21 07:50 Pulse 67 10/16/21 07:50 Resp 19 10/16/21 07:50 BP 115/66 10/16/21 07:50 Pulse Ox 95 10/16/21 07:50 BMI result Body Mass Index 25.8 Const: General: comfortable, no acute distress, alert and awake Orientation/consciousness: patient oriented x3 HENMT: Head: Yes normal to inspection General nose exam: No nasal polyps present and No nasal discharge present Face and sinus: Yes sinuses nontender Mouth: oropharynx normal Throat: Yes posterior oropharynx normal Eyes: General: appearance normal, both eyes and all related structures Neck: Neck: Yes normal visual inspection, Yes no lymphadenopathy, Yes trachea midline and Yes no JVD Thyroid: Thyroid normal Chest: Chest palpation & inspection: normal inspection of the chest, normal palpation of entire chest wall and no tenderness Resp: Other: Percussion note resonant, He does have good breath sounds on both sides, with small volumes. Has a few inspiratory crackles over the right basilar area. No wheezes, Cardio: Palpation: normal PMI Rate: regular rate Rhythm: regular rhythm Heart sounds: no gallops and no murmurs Peripheral pulses: Peripheral pulses 2+ throughout GI: Palpation (GI): Soft to palpation, nontender, No hepatosplenomegaly present and no masses Auscultation: normal bowel sounds Back/Spine/Pelvis: Thoracic/Lumbar Spine: thoracic and lumbar spine normal to inspection Skin: General skin exam: no rashes or lesions noted Neuro: General: patient oriented x3 and no focal motor deficits Cranial nerves: Yes CN's II-XII intact bilaterally Extrem: General: Yes normal to inspection, Yes no clubbing, cyanosis or edema and Yes no calf tenderness Psych: Appearance: grossly normal Speech and movement: Normal speech and movement present Procedures Date of Service Date of Service: 10/16/21 Assessment and Plan Assessment and plan (1) COVID-19: Status: Acute Assessment and Plan: Has been admitted with the, COVID pneumonia, as bilateral alveolar infiltrates, Being treated with IV Solu-Medrol, O2 supplementation, and symptomatic agents. He is gradually improving. Oxygenating well with nasal cannula 12-13 L per minute Tx continue present treatment, Encourage the patient to get out of bed as tolerated. Encourage patient to do deep breathing exercises. (2) Acute respiratory failure with hypoxia: Status: Acute Assessment and Plan: Hypoxemia secondary to ARDS caused by a acute COVID pneumonitis. He is oxygenating well with nasal cannula. Plan should be weaning off off O2 gradually, as long as O2 sat is above 90%. Time Spent With Patient Time: Total time spent is greater than 50% in coordination of care (as documented) at patient's floor/unit and/or counseling patient: Time with patient: 15 - 24 minutes Progress Note: Quality Stroke Does the patient have a stroke diagnosis?: No
[2021-10-16] MEDS: dexAMETHasone sod phosphate 4 MG/ML VIAL 6 MG IVPUSH (10:34)
[2021-10-16] MEDS: 0.9 % Sodium Chloride Flush 3 ML SYRINGE IVFLUSH ×3 (10:34→21:29)
[2021-10-16] MEDS: Lidocaine 4 % Patch ADH..PATCH 1 PATCH TRANSDERMA (10:34)
[2021-10-16 11:27] VITALS: BP 119/61; PULSE 70; RESP 20; TEMP 36.4; O2SAT 95
--- NOTE | 2021-10-16 13:12 | HO.PM.IMPN ---
Subjective Subjective Date of Service: 10/16/21 Interval History: seen in f/u for hypoxia d/t covid, still hypoxic and O2 requirement has gone up presently on 13 liter and sating 96--He doen't feel worse Review of Systems sob, no fever, +cough Physical Exam Vital Signs: Vital Signs: Last Vital Signs Temp 97.5 F 10/16/21 11:27 Pulse 70 10/16/21 11:27 Resp 20 10/16/21 11:27 BP 119/61 10/16/21 11:27 Pulse Ox 95 10/16/21 11:27 BMI result Body Mass Index 25.8 Const: Other: General: AO X 3, no acute distress Resp: normal respiratory effort CVS: S1,S2,RRR GI: +BS, NT, no distention Skin: No rash Neuro: motor grossly intact Psych: appropriate affect Objective Data Active Medications Dexamethasone Sodium Phosphate (Dexamethasone Sod Phosphate 4 Mg/Ml Vial) 6 mg IVPUSH DAILY [facility] Last Admin: 10/16/21 10:34 Dose: 6 mg Documented by: ARACELI Enoxaparin Sodium (Enoxaparin Sodium 40 Mg/0.4 Ml Syringe) 40 mg SUBCUT Q24H [facility] Last Admin: 10/15/21 16:24 Dose: 40 mg Documented by: JOAQUINA Guaifenesin/Codeine Phosphate (Guaifen/Codeine Sf 200/20/10ml 10 Ml Liquid) 5 ml PO Q6H PRN PRN Reason: Cough Last Admin: 10/15/21 22:15 Dose: 5 ml Documented by: RONDA Lidocaine (Lidocaine 4 % Patch Adh..Patch) 1 patch TRANSDERMA DAILY [facility]; Protocol Last Admin: 10/16/21 10:34 Dose: 1 patch Documented by: ARACELI Melatonin (Melatonin 3 Mg Tablet) 6 mg PO BEDTIME PRN PRN Reason: insomnioa Last Admin: 10/12/21 22:10 Dose: 6 mg Documented by: VERO Pharmacy Consult (Consult Rx Perform Med Rec) 1 each MISCELLANE ONCE PRN PRN Reason: Consult order Pharmacy Consult (Consult Rx Perform Med Rec) 1 each MISCELLANE ONCE PRN PRN Reason: Consult order Sodium Chloride (0.9 % Sodium Chloride Flush 3 Ml Syringe) 3 ml IVFLUSH QSHIFT [facility] Last Admin: 10/16/21 10:34 Dose: 3 ml Documented by: ARACELI Labs CBC & Chem 7: 10/14/21 06:15 10/14/21 06:15 Assessment and Plan (1) COVID-19: Status: Acute (2) Acute respiratory failure with hypoxia: Status: Acute Assessment and Plan: 1.? Acute hypoxemic respiratory failure secondary to COVID infection. remains hypoxic on 13 liters by [place] continue Dexamethasone Avoid Remdesevir d/t high LFTs Baricitinib if gets on high flow Pulmonary following. cough medicaiton for cough 2. Elevated LFTs d/t covid 3.? DVT prophylaxis with subQ Lovenox Quality Stroke Does the patient have a stroke diagnosis?: No VTE Prior VTE?: No VTE Risk Level:: Medical - moderate - high VTE Device Contraindication: N/A - Device Ordered VTE Drug Contraindication: N/A - Med Ordered
[2021-10-16 15:36] VITALS: BP 111/70; PULSE 72; RESP 18; TEMP 37.1; O2SAT 98
[2021-10-16] MEDS: Enoxaparin Sodium 40 MG/0.4 ML SYRINGE SUBCUT (16:38)
[2021-10-16 19:20] VITALS: BP 120/80; PULSE 70; RESP 19; TEMP 36.3; O2SAT 94
[2021-10-16] MEDS: guaiFEN/Codeine SF 200/20/10ML 10 ML LIQUID 5 ML PO (21:35)
[2021-10-17] VITALS (7 sets, daily range): BP systolic 110–128; BP diastolic 52–68; PULSE 64–81; RESP 15–24; TEMP 36.4–37.4; O2SAT 86–95
[2021-10-17] MEDS: 0.9 % Sodium Chloride Flush 3 ML SYRINGE IVFLUSH ×2 (09:58→16:15)
[2021-10-17] MEDS: Lidocaine 4 % Patch ADH..PATCH 1 PATCH TRANSDERMA (09:59)
[2021-10-17] MEDS: dexAMETHasone sod phosphate 4 MG/ML VIAL 6 MG IVPUSH (10:00)
--- NOTE | 2021-10-17 10:57 | HO.PM.IMPN ---
Subjective Subjective Date of Service: 10/17/21 Interval History: seen in f/u for hypoxia d/t covid, still hypoxic, essentially no change in status. Review of Systems sob, no fever, +cough Physical Exam Vital Signs: Vital Signs: Last Vital Signs Temp 98.3 F 10/17/21 08:00 Pulse 77 10/17/21 08:00 Resp 22 H 10/17/21 08:00 BP 119/52 L 10/17/21 08:00 Pulse Ox 86 L 10/17/21 08:00 BMI result Body Mass Index 25.8 Const: Other: General: AO X 3, no acute distress Resp: normal respiratory effort CVS: S1,S2,RRR GI: +BS, NT, no distention Skin: No rash Neuro: motor grossly intact Psych: appropriate affect Objective Data Active Medications Dexamethasone Sodium Phosphate (Dexamethasone Sod Phosphate 4 Mg/Ml Vial) 6 mg IVPUSH DAILY [facility] Last Admin: 10/17/21 10:00 Dose: 6 mg Documented by: SATISH Enoxaparin Sodium (Enoxaparin Sodium 40 Mg/0.4 Ml Syringe) 40 mg SUBCUT Q24H [facility] Last Admin: 10/16/21 16:38 Dose: 40 mg Documented by: ARACELI Guaifenesin/Codeine Phosphate (Guaifen/Codeine Sf 200/20/10ml 10 Ml Liquid) 5 ml PO Q6H PRN PRN Reason: Cough Last Admin: 10/16/21 21:35 Dose: 5 ml Documented by: RONDA Lidocaine (Lidocaine 4 % Patch Adh..Patch) 1 patch TRANSDERMA DAILY [facility]; Protocol Last Admin: 10/17/21 09:59 Dose: 1 patch Documented by: SATISH Melatonin (Melatonin 3 Mg Tablet) 6 mg PO BEDTIME PRN PRN Reason: insomnioa Last Admin: 10/12/21 22:10 Dose: 6 mg Documented by: VERO Pharmacy Consult (Consult Rx Perform Med Rec) 1 each MISCELLANE ONCE PRN PRN Reason: Consult order Pharmacy Consult (Consult Rx Perform Med Rec) 1 each MISCELLANE ONCE PRN PRN Reason: Consult order Sodium Chloride (0.9 % Sodium Chloride Flush 3 Ml Syringe) 3 ml IVFLUSH QSHIFT [facility] Last Admin: 10/17/21 09:58 Dose: 3 ml Documented by: SATISH Labs CBC & Chem 7: 10/14/21 06:15 10/14/21 06:15 Assessment and Plan (1) COVID-19: Status: Acute (2) Acute respiratory failure with hypoxia: Status: Acute Assessment and Plan: 1.? Acute hypoxemic respiratory failure secondary to COVID infection. remains hypoxic on 13 liters by NC continue Dexamethasone Avoid Remdesevir d/t high LFTs Baricitinib if gets on high flow Pulmonary following. cough medicaiton for cough Incentive spirometry, proning if able. 2. Elevated LFTs d/t covid 3.? DVT prophylaxis with subQ Lovenox Overall goal is to wean O2 Quality Stroke Does the patient have a stroke diagnosis?: No VTE Prior VTE?: No VTE Risk Level:: Medical - moderate - high VTE Device Contraindication: N/A - Device Ordered VTE Drug Contraindication: N/A - Med Ordered
[2021-10-17 11:28] LABS: Glucose, Whole Blood 224 mg/dL (60-115)
--- NOTE | 2021-10-17 13:09 | MHC.CM.PN ---
Per ROUNDS discussion, Patient is not yet medically cleared for dc (IV Decadron, 13L O2); Home is the goal for dc and CM will follow for possible need to adjust the dc plan.
[2021-10-17] MEDS: Enoxaparin Sodium 40 MG/0.4 ML SYRINGE SUBCUT (16:15)
[2021-10-18 04:00] VITALS: PULSE 71; RESP 18; O2SAT 92
[2021-10-18] MEDS: 0.9 % Sodium Chloride Flush 3 ML SYRINGE IVFLUSH ×3 (05:40→15:15)
[2021-10-18 08:00] VITALS: BP 97/60; PULSE 73; RESP 18; TEMP 36.4; O2SAT 90
[2021-10-18] MEDS: Lidocaine 4 % Patch ADH..PATCH 1 PATCH TRANSDERMA (09:50)
[2021-10-18] MEDS: dexAMETHasone sod phosphate 4 MG/ML VIAL 6 MG IVPUSH (09:50)
--- NOTE | 2021-10-18 11:07 | HO.PM.IMPN ---
Subjective Subjective Date of Service: 10/19/21 Interval History: seen in f/u for hypoxia d/t covid, still hypoxic, but some progress weaning howie to 10 from 13 Review of Systems sob, no fever, +cough Physical Exam Vital Signs: Vital Signs: Last Vital Signs Temp 97.6 F 10/18/21 08:00 Pulse 73 10/18/21 08:00 Resp 18 10/18/21 08:00 BP 97/60 10/18/21 08:00 Pulse Ox 90 L 10/18/21 08:00 BMI result Body Mass Index 25.8 Const: Other: General: AO X 3, no acute distress Resp: normal respiratory effort CVS: S1,S2,RRR GI: +BS, NT, no distention Skin: No rash Neuro: motor grossly intact Psych: appropriate affect Objective Data Active Medications Dexamethasone Sodium Phosphate (Dexamethasone Sod Phosphate 4 Mg/Ml Vial) 6 mg IVPUSH DAILY [facility] Last Admin: 10/18/21 09:50 Dose: 6 mg Documented by: JENNA Enoxaparin Sodium (Enoxaparin Sodium 40 Mg/0.4 Ml Syringe) 40 mg SUBCUT Q24H [facility] Last Admin: 10/17/21 16:15 Dose: 40 mg Documented by: ALLISON Lidocaine (Lidocaine 4 % Patch Adh..Patch) 1 patch TRANSDERMA DAILY [facility]; Protocol Last Admin: 10/18/21 09:50 Dose: 1 patch Documented by: JENNA Melatonin (Melatonin 3 Mg Tablet) 6 mg PO BEDTIME PRN PRN Reason: insomnioa Last Admin: 10/12/21 22:10 Dose: 6 mg Documented by: VERO Pharmacy Consult (Consult Rx Perform Med Rec) 1 each MISCELLANE ONCE PRN PRN Reason: Consult order Pharmacy Consult (Consult Rx Perform Med Rec) 1 each MISCELLANE ONCE PRN PRN Reason: Consult order Sodium Chloride (0.9 % Sodium Chloride Flush 3 Ml Syringe) 3 ml IVFLUSH QSHIFT [facility] Last Admin: 10/18/21 09:50 Dose: 3 ml Documented by: JENNA Labs CBC & Chem 7: 10/14/21 06:15 10/14/21 06:15 Labs: Laboratory Results - last 24 hr 10/17/21 10:57 POC Glucose 224 H Assessment and Plan (1) COVID-19: Status: Acute (2) Acute respiratory failure with hypoxia: Status: Acute Assessment and Plan: 1.? Acute hypoxemic respiratory failure secondary to COVID infection. remains hypoxic on 13 liters by NC continue Dexamethasone D7 Avoid Remdesevir d/t high LFTs Baricitinib if gets on high flow Pulmonary following. cough medicaiton for cough Incentive spirometry, proning if able. 2. Elevated LFTs d/t covid 3.? DVT prophylaxis with subQ Lovenox Overall goal is to wean O2 Quality Stroke Does the patient have a stroke diagnosis?: No VTE Prior VTE?: No VTE Risk Level:: Medical - moderate - high VTE Device Contraindication: N/A - Device Ordered VTE Drug Contraindication: N/A - Med Ordered
[2021-10-18 11:52] VITALS: BP 101/63; PULSE 93; RESP 18; TEMP 36.7; O2SAT 93
[2021-10-18 15:22] VITALS: BP 105/59; PULSE 71; RESP 20; TEMP 36.9; O2SAT 95
[2021-10-18 19:28] VITALS: BP 112/68; PULSE 70; RESP 20; TEMP 36.6; O2SAT 93
[2021-10-19] VITALS (8 sets, daily range): BP systolic 107–130; BP diastolic 58–65; PULSE 69–79; RESP 19–20; TEMP 36.6–37.3; O2SAT 92–95
[2021-10-19] MEDS: 0.9 % Sodium Chloride Flush 3 ML SYRINGE IVFLUSH ×4 (01:49→23:19)
[2021-10-19] MEDS: Lidocaine 4 % Patch ADH..PATCH 1 PATCH TRANSDERMA (09:43)
[2021-10-19] MEDS: dexAMETHasone sod phosphate 4 MG/ML VIAL 6 MG IVPUSH (09:43)
--- NOTE | 2021-10-19 10:13 | P.PNIM_ITS ---
Subjective Subjective Date of Service: 10/19/21 Interval History: seen in f/u for hypoxia d/t covid, still hypoxic, but some progress weaning howie to 8 from 10 Review of Systems sob, no fever, +cough Physical Exam Vital Signs: Vital Signs: Last Vital Signs Temp 98.2 F 10/19/21 08:00 Pulse 71 10/19/21 08:00 Resp 20 10/19/21 00:00 BP 124/64 10/19/21 08:00 Pulse Ox 95 10/19/21 08:00 BMI result Body Mass Index 25.8 Const: Other: General: AO X 3, no acute distress Resp: normal respiratory effort CVS: S1,S2,RRR GI: +BS, NT, no distention Skin: No rash Neuro: motor grossly intact Psych: appropriate affect Objective Data Active Medications Dexamethasone Sodium Phosphate (Dexamethasone Sod Phosphate 4 Mg/Ml Vial) 6 mg IVPUSH DAILY [facility] Last Admin: 10/19/21 09:43 Dose: 6 mg Documented by: SHELBY Enoxaparin Sodium (Enoxaparin Sodium 40 Mg/0.4 Ml Syringe) 40 mg SUBCUT Q24H [facility] Last Admin: 10/18/21 15:15 Dose: Not Given Documented by: JENNA Non-Admin Reason: Patient Refused Lidocaine (Lidocaine 4 % Patch Adh..Patch) 1 patch TRANSDERMA DAILY [facility]; Protocol Last Admin: 10/19/21 09:43 Dose: 1 patch Documented by: SHELBY Melatonin (Melatonin 3 Mg Tablet) 6 mg PO BEDTIME PRN PRN Reason: insomnioa Last Admin: 10/12/21 22:10 Dose: 6 mg Documented by: VERO Pharmacy Consult (Consult Rx Perform Med Rec) 1 each MISCELLANE ONCE PRN PRN Reason: Consult order Pharmacy Consult (Consult Rx Perform Med Rec) 1 each MISCELLANE ONCE PRN PRN Reason: Consult order Sodium Chloride (0.9 % Sodium Chloride Flush 3 Ml Syringe) 3 ml IVFLUSH QSHIFT [facility] Last Admin: 10/19/21 09:43 Dose: 3 ml Documented by: SHELBY Labs CBC & Chem 7: 10/14/21 06:15 10/14/21 06:15 Assessment and Plan (1) COVID-19: Status: Acute (2) Acute respiratory failure with hypoxia: Status: Acute Assessment and Plan: 1.? Acute hypoxemic respiratory failure secondary to COVID infection. * remains hypoxic but making good progres now 8 liters * continue Dexamethasone D7 * Avoid Remdesevir d/t high LFTs * Baricitinib if gets on high flow * Pulmonary following. * cough medicaiton for cough * Incentive spirometry, proning if able. 2. Elevated LFTs d/t covid 3.? DVT prophylaxis with subQ Lovenox Overall goal is to wean O2 Quality Stroke Does the patient have a stroke diagnosis?: No VTE Prior VTE?: No VTE Risk Level:: Medical - moderate - high VTE Device Contraindication: N/A - Device Ordered VTE Drug Contraindication: N/A - Med Ordered
[2021-10-20 04:00] VITALS: BP 99/60; PULSE 69; RESP 18; TEMP 36.6; O2SAT 95
[2021-10-20 07:47] VITALS: BP 110/53; PULSE 71; RESP 20; TEMP 36.6; O2SAT 94
[2021-10-20] MEDS: 0.9 % Sodium Chloride Flush 3 ML SYRINGE IVFLUSH ×2 (08:26→17:14)
[2021-10-20] MEDS: dexAMETHasone sod phosphate 4 MG/ML VIAL 6 MG IVPUSH (08:26)
[2021-10-20] MEDS: Lidocaine 4 % Patch ADH..PATCH 1 PATCH TRANSDERMA (08:26)
[2021-10-20 11:33] VITALS: BP 106/72; PULSE 67; RESP 20; TEMP 36.8; O2SAT 93
--- NOTE | 2021-10-20 12:29 | HO.PM.IMPN ---
Subjective Subjective Date of Service: 10/20/21 Interval History: seen in f/u for hypoxia d/t covid, still hypoxic, but some progress weaning howie to 5 from 8 Physical Exam Vital Signs: Vital Signs: Last Vital Signs Temp 98.2 F 10/20/21 11:33 Pulse 67 10/20/21 11:33 Resp 20 10/20/21 11:33 BP 106/72 10/20/21 11:33 Pulse Ox 93 10/20/21 11:33 BMI result Body Mass Index 25.8 Const: Other: General: AO X 3, no acute distress Resp: normal respiratory effort CVS: S1,S2,RRR GI: +BS, NT, no distention Skin: No rash Neuro: motor grossly intact Psych: appropriate affect Objective Data Active Medications Dexamethasone Sodium Phosphate (Dexamethasone Sod Phosphate 4 Mg/Ml Vial) 6 mg IVPUSH DAILY [facility] BEDS AT [facility] Last Admin: 10/20/21 08:26 Dose: 6 mg Documented by: JOE Enoxaparin Sodium (Enoxaparin Sodium 40 Mg/0.4 Ml Syringe) 40 mg SUBCUT Q24H [facility] 234 BEDS AT THE [facility] Last Admin: 10/19/21 14:48 Dose: Not Given Documented by: SHELBY Non-Admin Reason: Patient Refused Lidocaine (Lidocaine 4 % Patch Adh..Patch) 1 patch TRANSDERMA DAILY [facility] 234 BEDS AT [facility]; Protocol Last Admin: 10/20/21 08:26 Dose: 1 patch Documented by: JOE Melatonin (Melatonin 3 Mg Tablet) 6 mg PO BEDTIME PRN PRN Reason: insomnioa Last Admin: 10/12/21 22:10 Dose: 6 mg Documented by: VERO Pharmacy Consult (Consult Rx Perform Med Rec) 1 each MISCELLANE ONCE PRN PRN Reason: Consult order Pharmacy Consult (Consult Rx Perform Med Rec) 1 each MISCELLANE ONCE PRN PRN Reason: Consult order Sodium Chloride (0.9 % Sodium Chloride Flush 3 Ml Syringe) 3 ml IVFLUSH QSHIFT [facility] 234 BEDS AT [facility] Last Admin: 10/20/21 08:26 Dose: 3 ml Documented by: JOE Labs CBC & Chem 7: 10/14/21 06:15 10/14/21 06:15 Assessment and Plan (1) COVID-19: Status: Acute (2) Acute respiratory failure with hypoxia: Status: Acute Assessment and Plan: 1.? Acute hypoxemic respiratory failure secondary to COVID infection. remains hypoxic but making good progres now 5 liters continue Dexamethasone D8 Avoided Remdesevir d/t high LFTs Baricitinib if gets on high flow Pulmonary following. cough medicaiton for cough Incentive spirometry, proning if able. 2. Elevated LFTs d/t covid 3.? DVT prophylaxis with subQ Lovenox Overall goal is to wean O2 to room air Quality Stroke Does the patient have a stroke diagnosis?: No VTE Prior VTE?: No VTE Risk Level:: Medical - moderate - high VTE Device Contraindication: N/A - Device Ordered VTE Drug Contraindication: N/A - Med Ordered
--- NOTE | 2021-10-20 13:15 | MHC.CM.PN ---
Per ROUNDS discussion, Patient is not yet medically cleared for dc (IV Decadron, 5L O2); Home is the goal for dc and CM will follow for possible need to adjust the dc plan.
[2021-10-20 15:05] VITALS: BP 110/71; PULSE 104; RESP 20; TEMP 36.8; O2SAT 91
[2021-10-20] MEDS: Enoxaparin Sodium 40 MG/0.4 ML SYRINGE SUBCUT (17:14)
[2021-10-20 19:07] VITALS: BP 106/61; PULSE 75; RESP 20; TEMP 36.7; O2SAT 95
[2021-10-20 23:12] VITALS: BP 106/65; PULSE 68; RESP 20; TEMP 36.9; O2SAT 96
[2021-10-21] VITALS (7 sets, daily range): BP systolic 98–118; BP diastolic 50–64; PULSE 68–106; RESP 17–20; TEMP 36.6–37.2; O2SAT 87–96
[2021-10-21] MEDS: 0.9 % Sodium Chloride Flush 3 ML SYRINGE IVFLUSH ×4 (00:46→22:16)
[2021-10-21] MEDS: dexAMETHasone sod phosphate 4 MG/ML VIAL 6 MG IVPUSH (10:33)
--- NOTE | 2021-10-21 11:41 | P.PNIM_ITS ---
Subjective Subjective Date of Service: 10/21/21 Interval History: seen in f/u for hypoxia d/t covid, still hypoxic, but some progress weaning howie to 5 from 8 Review of Systems sob, no fever, +cough Physical Exam Vital Signs: Vital Signs: Last Vital Signs Temp 97.9 F 10/21/21 07:36 Pulse 68 10/21/21 07:36 Resp 20 10/21/21 07:36 BP 102/64 10/21/21 07:36 Pulse Ox 95 10/21/21 07:36 BMI result Body Mass Index 25.8 Const: Other: General: AO X 3, no acute distress Resp: normal respiratory effort CVS: S1,S2,RRR GI: +BS, NT, no distention Skin: No rash Neuro: motor grossly intact Psych: appropriate affect Objective Data Active Medications Dexamethasone Sodium Phosphate (Dexamethasone Sod Phosphate 4 Mg/Ml Vial) 6 mg IVPUSH DAILY [facility] Last Admin: 10/21/21 10:33 Dose: 6 mg Documented by: CECI Enoxaparin Sodium (Enoxaparin Sodium 40 Mg/0.4 Ml Syringe) 40 mg SUBCUT Q24H [facility] Last Admin: 10/20/21 17:14 Dose: 40 mg Documented by: JOE Lidocaine (Lidocaine 4 % Patch Adh..Patch) 1 patch TRANSDERMA DAILY [facility]; Protocol Last Admin: 10/21/21 10:34 Dose: Not Given Documented by: CECI Non-Admin Reason: Patient Refused Melatonin (Melatonin 3 Mg Tablet) 6 mg PO BEDTIME PRN PRN Reason: insomnioa Last Admin: 10/12/21 22:10 Dose: 6 mg Documented by: VERO Pharmacy Consult (Consult Rx Perform Med Rec) 1 each MISCELLANE ONCE PRN PRN Reason: Consult order Pharmacy Consult (Consult Rx Perform Med Rec) 1 each MISCELLANE ONCE PRN PRN Reason: Consult order Sodium Chloride (0.9 % Sodium Chloride Flush 3 Ml Syringe) 3 ml IVFLUSH QSHIFT [facility] Last Admin: 10/21/21 10:33 Dose: 3 ml Documented by: CECI Labs CBC & Chem 7: 10/14/21 06:15 10/14/21 06:15 Assessment and Plan (1) COVID-19: Status: Acute (2) Acute respiratory failure with hypoxia: Status: Acute Assessment and Plan: 1.? Acute hypoxemic respiratory failure secondary to COVID infection. * remains hypoxic but making good progres now 4 liters * continue Dexamethasone D8 * Avoided Remdesevir d/t high LFTs * Baricitinib if gets on high flow * Pulmonary following. * cough medicaiton for cough * Incentive spirometry, proning if able. * home O2 eval 2. Elevated LFTs d/t covid 3.? DVT prophylaxis with subQ Lovenox Overall goal is to wean O2 to room air Quality Stroke Does the patient have a stroke diagnosis?: No VTE Prior VTE?: No VTE Risk Level:: Medical - moderate - high VTE Device Contraindication: N/A - Device Ordered VTE Drug Contraindication: N/A - Med Ordered
[2021-10-22 03:31] VITALS: BP 134/58; PULSE 72; RESP 17; TEMP 36.6; O2SAT 95
[2021-10-22 07:53] VITALS: BP 103/62; PULSE 68; RESP 20; TEMP 36.7; O2SAT 92
[2021-10-22] MEDS: dexAMETHasone sod phosphate 4 MG/ML VIAL 6 MG IVPUSH (10:27)
[2021-10-22] MEDS: 0.9 % Sodium Chloride Flush 3 ML SYRINGE IVFLUSH (10:31)
[2021-10-22 11:48] VITALS: BP 116/72; PULSE 82; RESP 18; TEMP 36.8; O2SAT 93
[2021-10-22 14:19] VITALS: PULSE 88; PULSE 89; O2SAT 94; O2SAT 98
--- NOTE | 2021-10-22 15:04 | MHC.CM.PN ---
Patient has been medically cleared for dc to home today, no services.
--- NOTE | 2021-10-22 15:06 | P.DS_ITS ---
DS: Providers Provider Date of Service: 10/22/21 Date of admission: 10/11/21 13:26 Date of discharge: 10/22/21 Primary care physician: Hetal Little MD Consults: 10/12/21 07:25 Consult to Infectious Diseases Routine Consulting Provider: Mai Lerner Reason for consultation: Acute hypoxemic respiratory failure secondary to COVID Has provider been notified: No 10/13/21 08:11 Consult to Pulmonology Routine Consulting Provider: Terry Mckenzie Reason for consultation: hypoxia/covid pna Has provider been notified: No DS: Diagnosis Discharge Diagnosis (1) COVID-19: Status: Acute (2) Acute respiratory failure with hypoxia: Status: Acute DS: Summary Hospital Course Hospital Course: 36-year-old unvaccinated male? with no significant past medical history had recent trip to [place] to visit his brother (who is vaccinated for COVID and has no symptoms currently).? He says that he came back on and since then he is having headaches myalgia and loss of taste and smell,? and from last 2-3 days he is also having progressive shortness of breath and fever. ? He says that a he still has on and off fever has some dry cough. Hospital course patient was admitted to the hospital maintained on high-flow oxygen given dexamethasone and frequent nebulizer treatments. Remdesivir was withheld secondary to elevated liver enzymes (COVID-19) Seen in consultation by Pulmonary and Infectious Disease who agreed with the plan of care. Over the next several days he was able to be weaned down on his oxygen; on the day of discharge home O2 eval was successful and he will be discharged home to follow-up with his PCP. He completed his course of Decadron will not need any meds upon discharge Time Spent with Patient Time attestation: Total time spent providing and/or coordinating discharge services: Discharge coordination time: Greater than 30 minutes Quality: Stroke Does the patient have a stroke diagnosis?: No Physical Exam Vital Signs: Vital Signs: Last Vital Signs Temp 98.2 F 10/22/21 11:48 Pulse 82 10/22/21 11:48 Resp 18 10/22/21 11:48 BP 116/72 10/22/21 11:48 Pulse Ox 93 10/22/21 11:48 BMI result Body Mass Index 25.8 Const: Other: no acute distress Resp: Other: clear to auscultation. No rales rhonchi wheezes Cardio: Other: no S4; positive S1-S2; no S3 murmurs/ rubs/ gallops Extrem: Other: no edema bilaterally Discharge Plan Discharge Patient Disposition: Home, Self-Care Discharge Diagnosis: Covid -19 Referrals: Hetal Little MD [Primary Care Provider] - 1 Week Discharge Medications: No Action No Known Home Meds RF: 0 Discharge Orders: Discharge Order (Routine); Ordered 10/22/21 Ordered By: Ruperto Lu Diet: advance to usual diet Activity on Discharge: As tolerated Stand Alone Forms: Patient Portal Discharge page Care Plan Goals: home rest fluids. Wean off O2 as tolerated Health Concerns: maintain oxygen saturation Plan of Treatment: follow-up with PCP 2 weeks Assessment: as above
== END 2021-10-22 16:02 | disposition home or self-care (01) | DRG 720 ==
LOC: HO.ED 11:55 → HO.EDOVER 13:34 → HO.IMC 10-13 19:33
PROVIDERS: Internal Medicine; Physician Assistant; Admitting Provider Internal Medicine; Emergency Provider Emergency Medicine; PCP Internal Medicine; Visit Provider Hospitalist
DX: A41.89 Other specified sepsis (principal); U07.1 COVID-19; J12.82 Pneumonia due to coronavirus disease 2019; J80 Acute respiratory distress syndrome
CPT/HCPCS: 36415; 71045; 76705; 80048; 80076; 82550; 82728; 82947; 83605; 83615; 83735; 84145; 85025; 85027; 85379; 85610; 85730; 86140; 86704; 86706; 86709; 86803; 87340; 87635; 93005; 96361; 96374; 99285; 99291; J1100; J1650

== ENCOUNTER → 2021-11-06 12:55 | Outpatient (BNVA) | payer BC, SELFPAY | PROVIDERS: PCP Nurse Practitioner Acute Care; Visit Provider Internal Medicine Pulmonary Disease ==